=== PATIENT | male | born 1960 ===

== ENCOUNTER 2016-08-09 21:10 | Inpatient (IN) | payer OTHER, MEDICARE ==
[~2016-08-09] VITALS: Ht 170.2 cm; Wt 68.0 kg
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
--- NOTE | 2016-08-09 21:30 | NUR ---
OPEN SORE ON HEAD COVERED WITH BACITRACIN, GAUZE AND SECURED BY AND .
--- NOTE | 2016-08-09 21:40 | NUR ---
PT SKIN CLEANSED AND BARRIER CREAM APPLIED TO OPEN SORE ON R HIP.
--- NOTE | 2016-08-09 22:00 | NUR ---
PT HERBERT D/C'D AND NEW 16G HERBERT PLACED. APPROX 40CCS THICK MILK LIKE WHITE OUTPUT. URINE AND URINE CULTURE SENT TO LAB BY ANTHONY LEO.
--- NOTE | 2016-08-09 22:10 | NUR ---
MARGARITO ESTABLISHED #20 LFA.
--- NOTE | 2016-08-09 22:15 | NUR ---
LABS OBTAINED AND SENT (1SST,1LAV,1BLUE,1GRAY,1PINK)
--- NOTE | 2016-08-09 22:22 | NUR ---
RADIOLOGY AT BEDSIDE FOR PORTABLE CHEST XRAY
[2016-08-09 22:28] LABS: ABSOLUTE BASOPHIL COUNT 0.1 /CUMM (0.0-0.2); ABSOLUTE EOSINOPHIL COUNT 0.5 /CUMM (0.0-0.7); ABSOLUTE GRANULOCYTE CT 9.5 /CUMM (1.4-6.5); ABSOLUTE MONOCYTE COUNT 0.6 /CUMM (0.10-0.60); BASOPHIL % 0.6 % (0.0-2.0); EOSINOPHIL % 4.1 % (0-5); GRANULOCYTE % 75.2 % (42.2-75.2); MEAN CORPUSCULAR HGB 27.5 PG (27.0-31.0); MEAN CORPUSCULAR HGB CONC 32.1 G/DL (33.0-37.0); MEAN CORPUSCULAR VOLUME 85.4 FL (80.0-94.0); MEAN PLATELET VOLUME 7.3 FL (7.4-10.4); PLATELET COUNT 236 /CUMM (130-400); RBC DISTRIBUTION WIDTH 16.8 % (11.5-14.5); RED BLOOD CELL CT 5.27 /CUMM (4.70-6.10); WHITE BLOOD CELL COUNT 12.7 /CUMM (4.8-10.8)
[2016-08-09 22:41] LABS: PT 13.4 SEC (9.4-12.5); PTT 36 SEC (25-37)
--- NOTE | 2016-08-09 22:43 | NUR ---
IN TO [facility]EE[facility]
--- NOTE | 2016-08-09 23:03 | NUR ---
PT MEDICATED WITH IV TYLENOL FOR HEADACHE PER EMAR.
--- NOTE | 2016-08-09 23:04 | RADIOLOGY REPORT ---
EXAMINATION: XR PORTABLE CHEST CLINICAL INFORMATION: Anorexia, weakness COMPARISON: 08/17/2005 chest x-ray TECHNIQUE: Portable frontal view of the chest was obtained. FINDINGS: The cardiomediastinal silhouette is normal. Right subclavian approach single lead cardiac pacer in place with its lead projecting over the right ventricle, unchanged in position. The lungs are clear. The pulmonary vascularity is unremarkable. Partial visualization of surgical wires in the lower neck. IMPRESSION: No acute cardiopulmonary findings.
[2016-08-09] MEDS ORDERED: ASPIRIN81 M4 PO (23:31)
[2016-08-09] MEDS ORDERED: ADVIL100 MG PO (23:32)
[2016-08-09] MEDS ORDERED: PROZAC10 M1 PO (23:32)
[2016-08-09] MEDS ORDERED: VALIUM2 M1 PO (23:32)
--- NOTE | 2016-08-10 00:06 | NUR ---
PT TO CAT SCAN AT THIS TIME.
--- NOTE | 2016-08-10 00:24 | CT SCAN REPORT ---
EXAMINATION: CT HEAD WITHOUT CONTRAST CLINICAL INFORMATION: Quadriplegic. Stage IV posterior occipital sore to the skull. COMPARISON: None. TECHNIQUE: Contiguous axial imaging was performed from the skull base to vertex without intravenous contrast. DLP: 648 mGy-cm. FINDINGS: The skin ulceration overlying the right aspect of the occipital bone is noted. No evidence for a fluid collection. There is stranding present. Gas extends to the bone. No osseous erosion. There is no evidence of acute intracranial hemorrhage or territorial infarction. No abnormal mass effect or midline shift is seen. Bui to white matter differentiation is well preserved. No extra-axial fluid collections are identified. No hydrocephalus. Proportional prominence of the ventricles and sulcal spaces is consistent with mild volume loss. There is no abnormal attenuation within the brain parenchyma. Mild opacification of the right mastoid air cells. Small fluid level in the left sphenoid sinus. IMPRESSION: No acute intracranial pathology. Soft tissue ulceration overlying the high right aspect of the occipital bone. Gas extends to the bone. No osseous erosion.
--- NOTE | 2016-08-10 00:31 | NUR ---
REPEAT LACTIC SENT TO LAB
--- NOTE | 2016-08-10 00:56 | NUR ---
HOUSE STAFF HERE TO AMPARO
--- NOTE | 2016-08-10 01:15 | NUR ---
PT BED ASSIGNMENT [id number]
--- NOTE | 2016-08-10 01:36 | NUR ---
REPORT GIVEN TO LEORA VERGARA
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
[2016-08-10 03:19] VITALS: BP 110/65
--- NOTE | 2016-08-10 03:21 | NUR ---
PT ADMITTED FROM ER VIA STRETCHER. 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 aLERT AND ORIENTED X 3. RA. RCW PACER. VSS PIEDAD. PT IS A QUADRAPELGIC. SKIN IS RED AND BLANCHABLE THOUGHOUT. BUE CONTRACTED. PATCHES OF DARK SKIN ON TRUNK SKIN IS EXCESSIVLEY DRY AND FLAKING OFF. OVERGROWTH OF SKIN TO BILATERAL FEET, NO INDIVIDUAL DIGITS NOTED. +PEDAL PULSE TO RLE ONLY VIA DOPPLER. UNSTAGLEBALE PENDING WOUND CONSULT TO OCCPITAL PORTION OF SKILL, BONE EXPOSED. PER MD ELIER HAMACIN W/ ABD PAD AND KERLIX. FLUIDS RUNNING. WILL CONTINUE TO MONITOR.
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
[2016-08-10 06:30] VITALS: BP 100/54
--- NOTE | 2016-08-10 07:57 | NUR ---
PT GAVE PERMISSION TO SPEAK WITH SISTER KEELEY AT THIS TIME.
[2016-08-10 09:34] LABS: ABSOLUTE BASOPHIL COUNT 0 /CUMM (0.0-0.2); ABSOLUTE EOSINOPHIL COUNT 0.4 /CUMM (0.0-0.7); ABSOLUTE GRANULOCYTE CT 6.8 /CUMM (1.4-6.5); ABSOLUTE LYMPH COUNT 1.8 /CUMM (1.2-3.4); ABSOLUTE MONOCYTE COUNT 0.5 /CUMM (0.10-0.60); BASOPHIL % 0.5 % (0.0-2.0); GRANULOCYTE % 71.9 % (42.2-75.2); MEAN CORPUSCULAR HGB 28.2 PG (27.0-31.0); MEAN CORPUSCULAR VOLUME 85.6 FL (80.0-94.0); MEAN PLATELET VOLUME 7.7 FL (7.4-10.4); PLATELET COUNT 174 /CUMM (130-400); RBC DISTRIBUTION WIDTH 16.5 % (11.5-14.5); RED BLOOD CELL CT 4.21 /CUMM (4.70-6.10); WHITE BLOOD CELL COUNT 9.5 /CUMM (4.8-10.8)
[2016-08-10 11:57] LABS: HEMATOCRIT 36.1 % (42-52)
--- NOTE | 2016-08-10 12:27 | NUR ---
PT eval canceled today. Spoke to nursing who stated pt just transfered to the floor and is still waiting for MD assessment. No POC is currently in place at this time. PT will cont to follow in order to complete eval as appropriate.
[2016-08-10 15:00] VITALS: BP 100/58
[2016-08-10 15:01] VITALS: BP 116/84
[2016-08-10 22:37] VITALS: BP 90/60
[2016-08-10 23:48] VITALS: BP 102/70
[2016-08-11 06:59] VITALS: BP 108/70
[2016-08-11 08:52] LABS: ABSOLUTE BASOPHIL COUNT 0.1 /CUMM (0.0-0.2); ABSOLUTE EOSINOPHIL COUNT 0.5 /CUMM (0.0-0.7); ABSOLUTE GRANULOCYTE CT 6.2 /CUMM (1.4-6.5); ABSOLUTE LYMPH COUNT 1.7 /CUMM (1.2-3.4); ABSOLUTE MONOCYTE COUNT 0.5 /CUMM (0.10-0.60); BASOPHIL % 0.6 % (0.0-2.0); EOSINOPHIL % 5.6 % (0-5); GRANULOCYTE % 68.8 % (42.2-75.2); HEMATOCRIT 35.9 % (42-52); MEAN CORPUSCULAR HGB 27.8 PG (27.0-31.0); MEAN CORPUSCULAR HGB CONC 32.7 G/DL (33.0-37.0); MEAN CORPUSCULAR VOLUME 84.8 FL (80.0-94.0); MEAN PLATELET VOLUME 8.1 FL (7.4-10.4); PLATELET COUNT 154 /CUMM (130-400); RBC DISTRIBUTION WIDTH 16.4 % (11.5-14.5); RED BLOOD CELL CT 4.23 /CUMM (4.70-6.10)
--- NOTE | 2016-08-11 09:15 | NUR ---
Physical Therapy: Consult received and chart reviewed. Pt is a quadriplegic and bedbound at baseline. Acute skilled PT is not indicated at this time. Will not follow. Thank you.
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
[2016-08-11 14:07] VITALS: BP 192/148
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
[2016-08-11 22:51] VITALS: BP 110/80
[2016-08-12 07:41] VITALS: BP 112/80
[2016-08-12 08:11] LABS: ABSOLUTE BASOPHIL COUNT 0.1 /CUMM (0.0-0.2); ABSOLUTE EOSINOPHIL COUNT 0.6 /CUMM (0.0-0.7); ABSOLUTE GRANULOCYTE CT 8.2 /CUMM (1.4-6.5); ABSOLUTE LYMPH COUNT 2.3 /CUMM (1.2-3.4); ABSOLUTE MONOCYTE COUNT 0.9 /CUMM (0.10-0.60); BASOPHIL % 0.4 % (0.0-2.0); EOSINOPHIL % 5.3 % (0-5); GRANULOCYTE % 68.3 % (42.2-75.2); HEMATOCRIT 38.2 % (42-52); MEAN CORPUSCULAR HGB 27.9 PG (27.0-31.0); MEAN CORPUSCULAR HGB CONC 32.9 G/DL (33.0-37.0); MEAN CORPUSCULAR VOLUME 84.8 FL (80.0-94.0); MEAN PLATELET VOLUME 7.8 FL (7.4-10.4); PLATELET COUNT 198 /CUMM (130-400); RBC DISTRIBUTION WIDTH 16.7 % (11.5-14.5); RED BLOOD CELL CT 4.51 /CUMM (4.70-6.10); WHITE BLOOD CELL COUNT 12.1 /CUMM (4.8-10.8)
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
[2016-08-12 14:16] VITALS: BP 115/80
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
[2016-08-12] MEDS ORDERED: FLUOXETINE HCL10 M2 PO (15:48)
--- NOTE | 2016-08-12 15:51 | Patient Discharge Instructions ---
Discharge Instructions General Discharge Information You were seen/treated for: -Failure to thrive -UTI in the setting of chronic Bhat -Pressure ulcers on the buttocks and occipital area negative for osteomyelitis -Necrotic lesions both feet, with possible osteomyelitis You had these procedures: bone biopsy of stage IV Occipital pressure ulcer Special Instructions: 1. Please follow-up with your primary care next week after discharge 2. Please follow-up with wound care after discharge 3. Please follow up with you dependency director after discharge 4. Please follow up with the plastic surgeon after discharge. Diet Continue normal diet: Yes Activity Other activity limits: Patient is quadriplegic Acute Coronary Syndrome Inclusion Criteria At DC or during hospital stay patient has or had the following: ACS DIAGNOSIS No Discharge Core Measures Meds if any: Prescribed or Continued at Discharge Meds if any: NOT Prescribed or Continued at Discharge Congestive Heart Failure Inclusion Criteria At DC or during hospital stay patient has or had the following: CHF DIAGNOSIS No Discharge Core Measures Meds if any: Prescribed or Continued at Discharge Meds if any: NOT Prescribed or Continued at Discharge Cerebrovascular accident Inclusion Criteria At DC or during hospital stay patient has or had the following: CVA/TIA Diagnosis No Discharge Core Measures Meds if any: Prescribed or Continued at Discharge Meds if any: NOT Prescribed or Continued at Discharge Venous thromboembolism Inclusion Criteria VTE Diagnosis No VTE Type NONE VTE Confirmed by (Test) NONE Discharge Core Measures - Per Current guidelines, there needs to be overlap - treatment for the first 5 days of Warfarin therapy. - If discharged on Warfarin prior to 5 days of - overlap therapy, the patient will need to be - assessed for post discharge needs including - *Post discharge parental anticoagulation - *Warfarin and/or parental anticoagulation education - *Follow up date to check INR post discharge At least 5 days overlap therapy as Inpatient Yes Meds if any: Prescribed or Continued at Discharge Note: Overlap Therapy is Warfarin and Anticoagulant Meds if any: NOT Prescribed or Continued at Discharge
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
--- NOTE | 2016-08-12 16:05 | RADIOLOGY REPORT ---
EXAMINATION: XR FOOT, RIGHT XR FOOT, LEFT CLINICAL INFORMATION: Necrotic feet. Evaluate for osteomyelitis. COMPARISON: None TECHNIQUE: Right foot, 3 views Left foot, 3 views FINDINGS: RIGHT FOOT: Soft tissue swelling of the dorsal foot without soft tissue emphysema or radiopaque foreign body. Bones are osteoporotic - especially in the periarticular regions. There is normal alignment at the Chopart and Lisfranc joints. The metatarsophalangeal joints are suboptimally evaluated due to extension at these joints and osseous overlap on the various projections. There is apparent dorsal subluxation at 3rd and 4th MTP joints and dorsal dislocation at the 5th MTP joint. The metatarsal heads are suboptimally evaluated. The cortical bone of the 5th metatarsal head is suboptimally defined. If patient has a soft tissue ulcer plantar to the 5th MTP joint, then suspicion for osteomyelitis involving the 5th metatarsal head would be further elevated. The lateral radiograph shows a soft tissue ulcer at the plantar aspect of the foot (plantar to the MTP joints). Also, there is soft tissue loss around the tip of the distal phalanx of the great toe . Questionable finding of mild bone resorption at the medial tip of the of the distal phalanx. LEFT FOOT: Soft tissue swelling at the dorsal aspect of the foot without soft tissue emphysema. Bones appear diffusely osteoporotic. The ankle and subtalar joints are suboptimally evaluated. There appears to be diffuse joint space narrowing within the hindfoot and midfoot. Bones have normal alignment at the Chopart and Lisfranc joints. Multiple toes are extended at their MTP joints. The articular surfaces at these joints are suboptimally evaluated due to osseous overlap on multiple projections and due to the severity of the osteoporosis. Possible chronic osseous resorption of the 4th metatarsal head. Opacity from bandage/gauze overlies the forefoot and partially interferes with evaluation of the phalanges. There is soft tissue ulceration at the tip of the great toe, and the lateral radiograph shows presence of bone resorption at the plantar surface of the distal phalangeal tuft -- this could be due to chronic ischemia and/or osteomyelitis. The integrity of the distal phalanx of the second toe is difficult to define; there is possible bone resorption at its tuft. IMPRESSION: 1. Bones are diffusely osteoporotic within both feet. 2. Due to the degree of osteoporosis, presence of forefoot bandages, and osseous overlap on various projections, it is difficult to radiographically evaluate the integrity of the metatarsal heads and phalanges. 3. Soft tissue ulcers are seen in the plantar aspect of each forefoot. Mild bone resorption at the medial aspect of the tuft of the distal phalanx of right great toe is suspected. Also, cortical bone at the head of the right 5th metatarsal is suboptimally defined. Unable to exclude osteomyelitis in these locations. 4. There is likely chronic ischemic bone loss and/or osteomyelitis affecting the tip of the distal phalanx of the left great toe. Distal phalanges of many toes in the left foot are suboptimally evaluated. MR imaging, or CT imaging, may be helpful for further evaluation.
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
--- NOTE | 2016-08-12 17:42 | PN- Podiatry ---
Subjective Subjective: Patient seen at bedside with no new pedal complaints. Reviewed x-ray findings at bedside with patient. Objective Vital Signs and I&Os Vital Signs Date Time Temp Pulse Resp B/P B/P Pulse O2 O2 Flow FiO2 Mean Ox Delivery Rate 08/12 1444 Room Air 08/12 1443 Room Air 08/12 1440 Room Air 08/12 1416 98.8 104 20 115/80 97 08/12 1411 Room Air 08/12 1340 Room Air 08/12 0741 97.9 97 20 112/80 99 08/11 2251 98.1 99 20 110/80 100 Intake & Output 08/12 1600 08/12 0800 08/12 0000 08/11 1600 08/11 0800 08/11 0000 Intake Total 120 240 600 450 300 Output Total 450 3400 2525 2100 300 251 Balance -450 -3280 -2285 -1500 150 49 Intake, Oral 120 240 600 450 300 Number 0 Bowel Movements Output, Stool 1 Output, Urine 450 3400 2525 2100 300 250 Patient 150 lb Weight Physical Exam: Dressings bilateral feet clean dry and intact. No cellulitis associated. Assessment/Plan Assessment/Plan Likely osteomyelitis great toe left foot possible osteomyelitis great toe right foot with questionable findings involving the lesser digits. Discussed great toe amputation with patient and he is amenable to this course. Will coordinate care with plastics.
--- NOTE | 2016-08-12 19:20 | PN- Plastic Surgery ---
Surgical Brief Attending Note Brief Attending Note: Consult requested to see patient for scalp wound. Patient already seen by plastic surgeon, Dr. Agudelo, this afternoon. Please feel free to call with any additional questions or requests. Patient, nursing, and medical team informed. Thank you. Dr. Rincon [phone]
[2016-08-13] VITALS (10 sets, daily range): BP systolic 112–180; BP diastolic 70–120
--- NOTE | 2016-08-13 06:55 | NUR ---
PT BP 180/118 HR 90. PAGED ORENGE MARIO MCGILL, PER MD GIVE VALIUM EARLY. PT C/O MUSCLE SPASMS AND ANXIETY, DENIES CHEST PAIN, SOB, NAUSEA, DIZZINESS. PER PT "IF YOU WANT THE BP TO GO DOWN I NEED TO TAKE VALIUM". PER MD ORDERS VALIUM GIVEN. WILL PASS ON TO ONCOMING RN TO RECHECK BP.
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
--- NOTE | 2016-08-13 08:26 | PN- Wound Care ---
Subjective Subjective: Plastic surgery evaluation noted decision has been made for conservative therapy Objective Vital Signs and I&Os Vital Signs Result Date Time B/P 170/110 08/13 0515 Pulse Ox 99 08/13 599 O2 Delivery Room Air 08/13 599 Temp 98.4 08/13 599 Pulse 90 08/13 599 Resp 16 08/13 599 Intake & Output 08/13 0000 / 1600 08/12 0800 Intake Total 120 240 120 Output Total 6558 308 6741 Balance -1280 -210 -3280 Intake, Oral 120 240 120 Number 1 Bowel Movements Output, Urine 3392 208 6390 Wound is unchanged with continued exposed bone Impression/Plan Impression/Plan Impression/Plan: 56-year-old quadriplegic has a stage IV pressure ulcer to the occipital area of his skull. The wound extends to bone which is exposed. Concern is raised over the possibility of osteomyelitis. Recommendation is made for plastic surgery evaluation for debridement and possible bone biopsy once antibiotics have been discontinued. For now the area should be offloaded to the extent possible and wound care can be Aquacel Ag with gauze over dressing on a daily basis with wound cleansing. Decision has been made not to pursue debridement and biopsy therefore can continue local wound care with Aquacel Ag and offload the area with a a doughnut. These may be available from the OR as anesthesia often uses disease to protect pressure damage from the scalp as well
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
--- NOTE | 2016-08-13 12:39 | PN- Infect Dx ---
Subjective Subjective: Afebrile without complaints Objective Last 24 Hrs of Vital Signs/I&O Vital Signs Date Time Temp Pulse Resp B/P B/P Pulse O2 O2 Flow FiO2 Mean Ox Delivery Rate 08/13 1105 Room Air 08/13 0844 112/70 08/13 0615 170/110 08/13 0600 98.4 90 16 180/120 99 Room Air 08/13 0241 140/92 08/13 0154 97.9 92 16 153/115 98 Room Air 08/12 1444 Room Air 08/12 1443 Room Air 08/12 1440 Room Air 08/12 1416 98.8 104 20 115/80 97 08/12 1411 Room Air 08/12 1340 Room Air Intake & Output 08/13 1600 08/13 0800 08/13 0000 Intake Total 200 120 Output Total 600 1400 Balance -400 -1280 Intake, Oral 200 120 Number 0 1 Bowel Movements Output, Urine 600 1400 Physical Exam Other Physical Findings: He appears comfortable in no acute distress HEENT dressing intact Lungs are clear Heart regular rhythm with no murmur Extremities dressings intact over both feet Results Last 24 Hours of Lab Results: No labs from today Last 24 Hours of Nelson Results: Blood cultures August 09 negative Urine culture August 12 negative Recent Imaging Studies: X-rays of both feet reveal diffuse osteoporosis, with mild bone resorption at the medial aspect of the tuft of the distal pharynx of the right great toe with cortical bone at the head of the right fifth metatarsal; chronic ischemic bone loss and/or osteomyelitis affecting the tip of the distal phalanx of the left great toe, with suboptimal evaluation of the distal phalanges of many of the toes of the left foot Assessment/Plan Impression: Stable off antibiotics with temperatures remaining normal. He is scheduled for a bone biopsy and wound closure of the occipital wound in the a.m., at which time he will also undergo bone biopsy/debridement of the affected toes by Podiatry. Suggestion: 1. Await occipital bone biopsy in the a.m. 2. Await debridement of the toes, scheduled for the a.m. as well 3. Continue to follow off antibiotics pending above
--- NOTE | 2016-08-13 18:08 | PN- Podiatry ---
Subjective Subjective: Patient seen at bedside for discussion regarding amputation of left and right great toes tomorrow. No new pedal complaints. Objective Vital Signs and I&Os Vital Signs Date Time Temp Pulse Resp B/P B/P Pulse O2 O2 Flow FiO2 Mean Ox Delivery Rate 08/13 1659 150/90 08/13 1543 172/90 08/13 1405 98.2 80 20 140/80 93 08/13 1105 Room Air 08/13 0844 112/70 08/13 0615 170/110 08/13 0600 98.4 90 16 180/120 99 Room Air 08/13 0241 140/92 08/13 0154 97.9 92 16 153/115 98 Room Air Intake & Output 08/13 1600 08/13 0800 08/13 0000 08/12 1600 08/12 0800 08/12 0000 Intake Total 500 200 120 240 120 240 Output Total 4724 976 0204 450 3400 2525 Balance -600 -400 -1280 -210 -3280 -2285 Intake, Oral 500 200 120 240 120 240 Number 0 1 Bowel Movements Output, Urine 7789 875 9639 450 3400 2525 Physical Exam: Dressing to both feet clean dry and intact. Assessment/Plan Assessment/Plan Left great toe osteomyelitis, with possible right great toe and fifth met head osteomyelitis. We will coordinate care with plastics following the debridement tomorrow. Consent obtained at bedside. Attending MD Review Statement Attending Statement Attending MD Statement: examined this patient
[2016-08-14 05:42] VITALS: BP 120/80
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
[2016-08-14 07:48] LABS: ABSOLUTE BASOPHIL COUNT 0 /CUMM (0.0-0.2); ABSOLUTE EOSINOPHIL COUNT 0.5 /CUMM (0.0-0.7); ABSOLUTE GRANULOCYTE CT 6.2 /CUMM (1.4-6.5); ABSOLUTE LYMPH COUNT 2.2 /CUMM (1.2-3.4); ABSOLUTE MONOCYTE COUNT 0.9 /CUMM (0.10-0.60); BASOPHIL % 0.5 % (0.0-2.0); EOSINOPHIL % 4.7 % (0-5); GRANULOCYTE % 63.1 % (42.2-75.2); HEMATOCRIT 35.5 % (42-52); MEAN CORPUSCULAR HGB 28.3 PG (27.0-31.0); MEAN CORPUSCULAR HGB CONC 32.9 G/DL (33.0-37.0); MEAN CORPUSCULAR VOLUME 85.8 FL (80.0-94.0); MEAN PLATELET VOLUME 8.2 FL (7.4-10.4); PLATELET COUNT 182 /CUMM (130-400); RBC DISTRIBUTION WIDTH 16.7 % (11.5-14.5); RED BLOOD CELL CT 4.13 /CUMM (4.70-6.10); WHITE BLOOD CELL COUNT 9.8 /CUMM (4.8-10.8)
--- NOTE | 2016-08-14 08:40 | PN- Wound Care ---
Subjective Subjective: For surgical debridement and bone biopsy of cranial ulcer today. Exam of his sacral area shows there to be a approximately 3.5 x 2.5 stage II pressure ulcer which was present on admission it has a clean red base there is no undermining sinus tracking or exposed bone Objective Vital Signs and I&Os Vital Signs Result Date Time Pulse Ox 99 08/14 541 B/P 120/80 08/14 541 O2 Delivery Room Air 08/14 541 Temp 98.3 08/14 541 Pulse 100 08/14 541 Resp 20 08/14 541 Intake & Output 08/14 0000 08/13 1600 08/13 0800 Intake Total 450 500 200 Output Total 751 1100 600 Balance -301 -600 -400 Intake, Oral 450 500 200 Number 1 0 Bowel Movements Output, Stool 1 Output, Urine 750 1100 600 Impression/Plan Impression/Plan Impression/Plan: 56-year-old quadriplegic has a stage IV pressure ulcer to the occipital area of his skull. The wound extends to bone which is exposed. Concern is raised over the possibility of osteomyelitis. Recommendation is made for plastic surgery evaluation for debridement and possible bone biopsy once antibiotics have been discontinued. For now the area should be offloaded to the extent possible and wound care can be Aquacel Ag with gauze over dressing on a daily basis with wound cleansing. Await surgical biopsy, wound care for stage II sacral ulcer can be either barrier cream or Aquacel Ag with appropriate offloading. Note review of nursing notes shows this was present on admission
--- NOTE | 2016-08-14 12:52 | NUR ---
PT GOING DOWN TO THE OR AT THIS TIME WITH DISTRIBUTION. VSS.
--- NOTE | 2016-08-14 15:17 | Operative Report ---
Operative/Inv Procedure Report Surgery Date: 08/14/16 Name of Procedure: Debridement and biopsy posterior skull Complex closure scalp wound secondary to quadriplegia and prolonged pressure,8 cm Pre-Operative Diagnosis: Pressure decubiti prehospital posterior scalp Post-Operative Diagnosis: Same Estimated Blood Loss: scant Surgeon/Inventory Coordinator: wil Anesthesia: moderate sedation Operative/Procedure Note Note: The patient was counseled regards to the procedure the alternatives risks and expected outcomes as relates to his surgical intervention to help treat a posterior scalp wound. The patient has full thickness injury to the posterior scalp due to a bout of depression and prolonged pressure on the area. The patient is quadriplegic. There is absent periosteum. We talked about primary closure with the additional risk of postoperative infection that would need to have the wound opened. The procedure were also discussed. The patient accepted. Was brought to the operating room position. Intravenous sedation was given the scalp was prepped and draped in usual sterile fashion. Full-thickness excision around the entirety of the wound was performed. Stents of undermining was then carried out in all directions to provide tension-free closure which was performed for approximately 8 cm. The to debridement of the posterior skull was extremely firm and small pieces of the ostectomy was sent for micron path analysis. Was made hemostatic with electrocautery. Dictation
[2016-08-14 16:00] VITALS: BP 100/70
--- NOTE | 2016-08-14 17:10 | Operative Report ---
Operative/Inv Procedure Report Surgery Date: 08/14/16 Name of Procedure: 1 open incision and drainage deep to the D fashion with exposure of the extensor and flexor tendon and tendon sheath multiple sites left foot 2 closure of chronic nonhealing ulcer with local random advancement flap 3 intraoperative administration of ankle block anesthesia 4 excisional debridement Pre-Operative Diagnosis: 1 open necrotic wound left foot 2 osteomyelitis left foot Post-Operative Diagnosis: Same Estimated Blood Loss: less than 50ml Surgeon/Airplane Cabin Attendant: JOB SNIDER DPM Anesthesia: moderate sedation, block Operative/Procedure Note Note: After obtaining informed consent patient was brought to the operating room and placed on the operating table in the supine position. He was then repositioned into a lateral decubitus position, so that the plastic service could debridement a scalp wound and harvest the bone biopsy. After administration of IV sedation, 10 mL of 0.5% Marcaine plain was infiltrated about the patient's left ankle. Left foot and ankle within scrubbed prepped and draped in usual aseptic manner. Attention directed left foot where a large full-thickness chronic was identified. A 15 blade was utilized sharply revised skin margins. The dissection was then carried down deep to the D fashion with exposure of the flexor tendon and tendon sheath multiple sites left foot. All necrotic nonviable infected tissue sharply evacuated from the wound bed. Area down to the capture structures at the level metatarsal phalangeal joint which were incised. The distal first ray was then disarticulated and passed from the operative field. Specimen was sent for pathologic inspection. Nipple was then irrigated with 3 L normal sterile saline fissure 50,000 units of bacitracin. Following this, the foot was redraped and the surgeon's top gloves were changed clean gloves. Any bleeding vessels identified were cauterized or ligated as encountered. A dorsal and plantar flap was then developed with undermining, mobilization and advancement adjacent tissues. The dorsal flap was secured centrally with 3-0 Vicryl and the plantar flap was similarly secured with 3-0 Vicryl. Subtenons tissues report with 4-0 Vicryl and the skin edges reapproximated with 3-0 nylon. The incision was dressed with Xeroform 4 x 4's Kerlix and an Delfino wrap. The patient is noted tolerate both procedure and anesthesia well and the patient was transported from the operating room to recovery by sent stable best assess intact both the dorsal and plantar flaps.
--- NOTE | 2016-08-14 17:26 | NUR ---
PT UP TO FLOOR AT 1600. PT A/O X3. PT QUADRAPALEGIC. LIMITED CONTROL OF BUE. PT S/P BIOPSY TO OCCIPTAL PART OF HEAD. SUTURES IN PLACE W ABD. NO ACTIVE BLEEDING PRESENT. PT ON CRADLE PILLOW. PT S/P L FOOT GREAT TOE AMP W LARGE BULKY DRAINAGE COVERED W ANTIONE WRAP. PT ON CLINITRON MATTRESS. SPECIAL CALL LIGHT BAEZA BUTTON WITHIN REACHON CHEST. WILL FOLLOW
[2016-08-14 22:37] VITALS: BP 110/78
[2016-08-15 06:30] VITALS: BP 116/72
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
[2016-08-15 08:07] LABS: ABSOLUTE BASOPHIL COUNT 0 /CUMM (0.0-0.2); ABSOLUTE EOSINOPHIL COUNT 0.5 /CUMM (0.0-0.7); ABSOLUTE GRANULOCYTE CT 5.1 /CUMM (1.4-6.5); ABSOLUTE LYMPH COUNT 2.1 /CUMM (1.2-3.4); ABSOLUTE MONOCYTE COUNT 0.5 /CUMM (0.10-0.60); BASOPHIL % 0.6 % (0.0-2.0); EOSINOPHIL % 5.5 % (0-5); GRANULOCYTE % 62.1 % (42.2-75.2); HEMATOCRIT 32.7 % (42-52); MEAN CORPUSCULAR HGB 28.1 PG (27.0-31.0); MEAN CORPUSCULAR HGB CONC 33.1 G/DL (33.0-37.0); PLATELET COUNT 176 /CUMM (130-400); RBC DISTRIBUTION WIDTH 16.4 % (11.5-14.5); RED BLOOD CELL CT 3.85 /CUMM (4.70-6.10); WHITE BLOOD CELL COUNT 8.3 /CUMM (4.8-10.8)
--- NOTE | 2016-08-15 10:49 | PN- Infect Dx ---
Subjective Subjective: Afebrile. He notes some discomfort in the occipital area, Objective Last 24 Hrs of Vital Signs/I&O Vital Signs Date Time Temp Pulse Resp B/P B/P Pulse O2 O2 Flow FiO2 Mean Ox Delivery Rate 08/15 1027 Room Air 08/15 0630 98.3 84 18 116/72 98 Room Air 08/14 2237 98.3 107 20 110/78 99 Room Air 08/14 1600 97.3 73 16 100/70 99 Nasal 2.0L Cannula Intake & Output 08/15 1600 08/15 0800 08/15 0000 Intake Total 1080 2600 Output Total 750 250 Balance 330 2350 Intake, IV 600 600 Intake, Oral 480 2000 Output, Urine 750 250 Physical Exam Other Physical Findings: He appears comfortable in no acute distress HEENT occipital wound sutured, with no surrounding erythema Extremities left foot dressing intact Results Last 24 Hours of Lab Results: Laboratory Tests 08/15 0725 Chemistry Sodium (137 - 145 mmol/L) 138 Potassium (3.5 - 5.1 mmol/L) 4.2 Chloride (98 - 107 mmol/L) 104 Carbon Dioxide (22 - 30 mmol/L) 27 Anion Gap (5 - 16) 7 BUN (9 - 20 mg/dL) 26 H Creatinine (0.7 - 1.2 mg/dL) 0.4 L Estimated GFR (>60 ml/min) > 60 BUN/Creatinine Ratio (7 - 25 %) 65.0 H Hematology CBC w Diff NO MAN DIFF REQ WBC (4.8 - 10.8 /CUMM) 8.3 RBC (4.70 - 6.10 /CUMM) 3.85 L Hgb (14.0 - 18.0 G/DL) 10.8 L Hct (42 - 52 %) 32.7 L MCV (80.0 - 94.0 FL) 85.0 MCH (27.0 - 31.0 PG) 28.1 RDW (11.5 - 14.5 %) 16.4 H Plt Count (130 - 400 /CUMM) 176 MPV (7.4 - 10.4 FL) 8.0 Gran % (42.2 - 75.2 %) 62.1 Lymphocytes % (20.5 - 51.1 %) 25.8 Monocytes % (1.7 - 9.3 %) 6.0 Eosinophils % (0 - 5 %) 5.5 H Basophils % (0.0 - 2.0 %) 0.6 Absolute Granulocytes (1.4 - 6.5 /CUMM) 5.1 Absolute Lymphocytes (1.2 - 3.4 /CUMM) 2.1 Absolute Monocytes (0.10 - 0.60 /CUMM) 0.5 Absolute Eosinophils (0.0 - 0.7 /CUMM) 0.5 Absolute Basophils (0.0 - 0.2 /CUMM) 0 PUBS MCHC (33.0 - 37.0 G/DL) 33.1 Last 24 Hours of Nelson Results: Urine culture August 12 negative Assessment/Plan Impression: Stable status post bone biopsy of the posterior skull for possible osteomyelitis , with closure of the scalp wound, and I&D of the left foot, with amputation of the great toe, yesterday. Unfortunately no specimen of the occipital bone was sent to microbiology; therefore if the pathology suggests osteomyelitis he will require a repeat biopsy for culture. The left great toe was also not submitted for culture, but Podiatry does not feel there is any concern for residual osteomyelitis; therefore he should not require antibiotics for this. He remains afebrile with white blood cell count normal off antibiotics, and he will need to continue to be followed off antibiotics pending further evaluation. Suggestion: 1. Follow-up occipital bone biopsy 2. Continue to follow off antibiotics
[2016-08-15 15:36] VITALS: BP 110/70
[2016-08-15 22:37] VITALS: BP 113/68
--- NOTE | 2016-08-16 00:30 | NUR ---
ALERT AND ORIENTED X 3. VITAL SIGNS STABLE. DENIES CHEST PAIN. + PULSES DSG TO R AND LEFT FOOT ARE C/D/I. ABD PAD UNDER HEAD WITH SCANT DRAINAGE NOTED MEDICATION GIVEN FOR DISCOMFORT. PATIENT TURNED AND REPOSITIONED. HERBERT CARE GIVEN. BED BOUND AT BASELINE. WILL CONTINUE TO MONITOR
[2016-08-16 07:59] VITALS: BP 136/80
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
[2016-08-16 08:37] LABS: ABSOLUTE BASOPHIL COUNT 0 /CUMM (0.0-0.2); ABSOLUTE EOSINOPHIL COUNT 0.5 /CUMM (0.0-0.7); ABSOLUTE GRANULOCYTE CT 5.6 /CUMM (1.4-6.5); ABSOLUTE LYMPH COUNT 1.7 /CUMM (1.2-3.4); ABSOLUTE MONOCYTE COUNT 0.5 /CUMM (0.10-0.60); BASOPHIL % 0.6 % (0.0-2.0); EOSINOPHIL % 5.8 % (0-5); GRANULOCYTE % 66.8 % (42.2-75.2); HEMATOCRIT 32.5 % (42-52); MEAN CORPUSCULAR HGB 28.4 PG (27.0-31.0); MEAN CORPUSCULAR HGB CONC 33.2 G/DL (33.0-37.0); MEAN CORPUSCULAR VOLUME 85.4 FL (80.0-94.0); MEAN PLATELET VOLUME 7.8 FL (7.4-10.4); PLATELET COUNT 184 /CUMM (130-400); RBC DISTRIBUTION WIDTH 16.2 % (11.5-14.5); RED BLOOD CELL CT 3.81 /CUMM (4.70-6.10); WHITE BLOOD CELL COUNT 8.4 /CUMM (4.8-10.8)
[2016-08-16 14:33] VITALS: BP 120/72
[2016-08-16 21:10] VITALS: BP 180/120
[2016-08-16 21:55] VITALS: BP 140/100
[2016-08-17 07:35] VITALS: BP 112/70
--- NOTE | 2016-08-17 09:10 | NUR ---
PHYSICAL THERAPY- REPEAT CONSULT PT WAS ALREADY SEEN ON 08/11/16 AND ACCORDING TO EMR AND NSG, PT IS A QUADRIPLEGIC AND IS BEDBOUND RENDERING HIM NOT APPROPRIATE FOR ACUTE SKILLED P.T. SERVICES. WILL NOT FOLLOW. THANK YOU JARRED SUAZOT
[2016-08-17 14:08] VITALS: BP 142/99
--- NOTE | 2016-08-17 15:13 | PN- Att Addend ---
Attending Addendum Attending Brief Note S: The patient did note some occipital discomfort at biopsy site, otherwise stable. Asking if the brand of catheter he is using is available for him to purchase for use at home as it is working well. O: VS: Vital Signs Date Time Temp Pulse Resp B/P B/P Pulse O2 O2 Flow FiO2 Mean Ox Delivery Rate 08/17 2132 98.1 80 18 132/90 99 Room Air 08/17 1600 Room Air 08/17 1408 99.2 99 20 142/99 98 08/17 0735 97.9 95 20 112/70 99 Room Air Intake & Output 08/18 0800 08/18 0000 08/17 1600 Intake Total 800 480 Output Total 1500 350 Balance -700 130 Intake, Oral 800 480 Output, Urine 1500 350 Current Medications Sig/Ellen Start time Last Medication Dose Route Stop Time Status Admin Acetaminophen 650 MG Q8P PRN 08/10 0145 AC 08/14 PO 2148 Acetaminophen/ 1 TAB Q8P PRN 08/10 0145 AC 08/15 Hydrocodone Bitart PO 2150 Aspirin 81 MG DAILY 08/10 1000 AC 08/17 PO 0850 Bacitracin 1 JARRET BID 08/14 1530 AC 08/17 TOP 2145 Bisacodyl 10 MG .STK-MED ONE 08/17 1856 DC [place] 08/17 1857 Bisacodyl 10 MG DAILY PRN 08/15 2114 AC 08/17 WI 1855 Calcium Carbonate 500 MG 1800 08/13 1800 AC 08/17 PO 1739 Diazepam 2 MG DAILY 08/10 1000 AC 08/17 PO 0850 Docusate Sodium 100 MG DAILY NEEDED PRN 08/15 2114 AC PO Enoxaparin Sodium 40 MG DAILY 08/10 1000 AC 08/17 SC 0851 Fluoxetine HCl 30 MG QAM 08/12 1000 AC 08/17 PO 0850 Melatonin 3 MG AT BEDTIME 08/16 0030 AC 08/17 PO 2144 Morphine Sulfate 2 MG Q8P PRN 08/10 0145 AC IV Physical Exam: HEENT: tian- moist mucosa Chest: clear Cor: RRR, nl S1, S2 w/o murm Abd: BS+, soft, NT Ext: no edema Neuro: w/o change Labs/Tests: Laboratory Tests 08/16/16 0720: CBC w Diff NO MAN DIFF REQ, RBC 3.81 L, MCV 85.4, MCH 28.4, RDW 16.2 H, MPV 7.8, Gran % 66.8, Lymphocytes % 20.5, Monocytes % 6.3, Eosinophils % 5.8 H, Basophils % 0.6, Absolute Granulocytes 5.6, Absolute Lymphocytes 1.7, Absolute Monocytes 0.5, Absolute Eosinophils 0.5, Absolute Basophils 0, PUBS MCHC 33.2 Impression/Plan: #UTI- off antibiotics. Remains afebrile. Plan: As above, patient requesting possible purchase of same type of catheter for home use as he feels it is better. #Pressure Ulcers- s/p biopsy of occipital region. As noted by ID, this was not sent to microbiology for culture. Plan: Await path/biopsy report. May need to repeat. #Left 1st Toe Infection- s/p amputation. ? osteomyelitis. Plan: Await culture results. Dr. Villarreal and Dr. Almeida to follow-up.
[2016-08-17 21:33] VITALS: BP 132/90
[2016-08-18 06:48] VITALS: BP 134/70
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
--- NOTE | 2016-08-18 12:56 | PN- Infect Dx ---
Subjective Subjective: Afebrile without complaints Objective Last 24 Hrs of Vital Signs/I&O Vital Signs Date Time Temp Pulse Resp B/P B/P Pulse O2 O2 Flow FiO2 Mean Ox Delivery Rate 08/18 0648 97.8 91 18 134/70 100 Room Air 08/17 2133 98.1 80 18 132/90 99 Room Air 08/17 1600 Room Air 08/17 1408 99.2 99 20 142/99 98 Intake & Output 08/18 1600 08/18 0800 08/18 0000 Intake Total 300 800 Output Total 9980 959 6470 Balance -1000 -550 -700 Intake, Oral 300 800 Number 0 Bowel Movements Output, Urine 6400 010 0601 Physical Exam Other Physical Findings: He appears comfortable in no acute distress HEENT occipital wound well-healed Results Last 24 Hours of Lab Results: Laboratory Tests 08/16 0720 Hematology CBC w Diff NO MAN DIFF REQ WBC (4.8 - 10.8 /CUMM) 8.4 RBC (4.70 - 6.10 /CUMM) 3.81 L Hgb (14.0 - 18.0 G/DL) 10.8 L Hct (42 - 52 %) 32.5 L MCV (80.0 - 94.0 FL) 85.4 MCH (27.0 - 31.0 PG) 28.4 RDW (11.5 - 14.5 %) 16.2 H Plt Count (130 - 400 /CUMM) 184 MPV (7.4 - 10.4 FL) 7.8 Gran % (42.2 - 75.2 %) 66.8 Lymphocytes % (20.5 - 51.1 %) 20.5 Monocytes % (1.7 - 9.3 %) 6.3 Eosinophils % (0 - 5 %) 5.8 H Basophils % (0.0 - 2.0 %) 0.6 Absolute Granulocytes (1.4 - 6.5 /CUMM) 5.6 Absolute Lymphocytes (1.2 - 3.4 /CUMM) 1.7 Absolute Monocytes (0.10 - 0.60 /CUMM) 0.5 Absolute Eosinophils (0.0 - 0.7 /CUMM) 0.5 Absolute Basophils (0.0 - 0.2 /CUMM) 0 PUBS MCHC (33.0 - 37.0 G/DL) 33.2 Pathology of the occipital bone pending Last 24 Hours of Nelson Results: No recent cultures Assessment/Plan Impression: Stable status post bone biopsy of the posterior skull for possible osteomyelitis , with closure of the scalp wound, and I&D of the left foot, with amputation of the great toe, 3 days ago. Unfortunately no specimen of the occipital bone was sent to microbiology; therefore if the pathology suggests osteomyelitis he will require a repeat biopsy for culture. The left great toe was also not submitted for culture, but Podiatry does not feel there is any concern for residual osteomyelitis; therefore he should not require antibiotics for this. He remains afebrile with white blood cell count normal off antibiotics, and he will need to continue to be followed off antibiotics pending further evaluation. Suggestion: 1. Await results of the occipital bone biopsy 2. Continue to follow off antibiotics
[2016-08-18 14:38] VITALS: BP 120/70
--- NOTE | 2016-08-18 15:23 | PN- Psychiatry ---
Assessment/Plan Impression: Identifying Info: 56-year-old quadriplegic male presents by ambulance to [facility] on 08/09/2016 with multiple pressure ulcers and failure to thrive post not leaving his bed for 16 month peroid and was admitted to medicine. 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 They are long-term partners however it is not clear if they are in fact legally . SUBJECTIVE Today the patient reports no changes. He has no complaints at this time. He states that he'll be going to rehabilitation and would consider going to [place]. He is eager to get the results of his bone biopsy. Brief ROS Gait: Impaired Sleep: Adequate Appetite: Adequate OBJECTIVE Mental Status Exam Presentation/Appearance: Cooperative with evaluation. Hospital garb, lying in bed. Orientation: x4 Sensorium: Awake and alert Eye contact: Appropriate Affect: Somewhat blunted but congruent with stated mood Mood: Euthymic Depression: Endorses r/t his Anxiety: Endorses Thought Content: - Denies SI/HI, AH/VH, PI. States and also believes they will not kill themselves. - Denies Hopeless/Helpless Thoughts Thought Process: Linear Associations: Appropriate Speech: WNL Judgment: Fair Insight: Fair Cognition: Memory: Deficits noted for peroid of being bed ridden Attention/Concentration: grossly intact Fund of Knowledge: Adequate Abstractions: Did not assess MMSE: Did not assess ASSESSMENT 56-year-old quadriplegic male presents with multiple pressure ulcers and failure to thrive post not leaving his bed for 16 months. When he was found he was covered in his own urine and stool. Today he presents without complaint. He is hopeful for his own recovery and agreeable with treatment plans at this time. Differential diagnosis Major depressive disorder with anxious features Rule out adjustment disorder Rule out other unspecified trauma related disorder Rule out hypoactive delirium, resolved Suggestion: 1. Continue psychotropic medication as currently ordered. Consider future increase in Prozac dose. 2. Recommend patient be followed by psychiatry at rehabilitation post discharge. Thank you for including psychiatry in this case we'll continue to follow. Subjective Subjective: as above Objective Last 24 Hrs of Vital Signs/I&O Current Medications Sig/Ellen Start time Last Medication Dose Route Stop Time Status Admin Acetaminophen 650 MG Q8P PRN 08/10 0145 AC 08/14 PO 2148 Acetaminophen/ 1 TAB Q8P PRN 08/10 0145 AC 08/15 Hydrocodone Bitart PO 2150 Aspirin 81 MG DAILY 08/10 1000 AC 08/18 PO 0804 Bacitracin 1 JARRET BID 08/14 1530 AC 08/18 TOP 0803 Bisacodyl 10 MG .STK-MED ONE 08/17 1856 DC ND 08/17 1857 Bisacodyl 10 MG DAILY PRN 08/15 211 AC 08/17 ND 1855 Calcium Carbonate 500 MG 1800 08/13 1800 AC 08/17 PO 1739 Diazepam 2 MG DAILY 08/10 1000 AC 08/18 PO 0806 Docusate Sodium 100 MG DAILY NEEDED PRN 08/15 2114 AC PO Enoxaparin Sodium 40 MG DAILY 08/10 1000 AC 08/18 SC 0803 Fluoxetine HCl 30 MG QAM 08/12 1000 AC 08/18 PO 0803 Melatonin 3 MG AT BEDTIME 08/16 0030 AC 08/17 PO 2144 Morphine Sulfate 2 MG Q8P PRN 08/10 0145 AC IV Laboratory Tests 08/16/16 0720: CBC w Diff NO MAN DIFF REQ, RBC 3.81 L, MCV 85.4, MCH 28.4, RDW 16.2 H, MPV 7.8, Gran % 66.8, Lymphocytes % 20.5, Monocytes % 6.3, Eosinophils % 5.8 H, Basophils % 0.6, Absolute Granulocytes 5.6, Absolute Lymphocytes 1.7, Absolute Monocytes 0.5, Absolute Eosinophils 0.5, Absolute Basophils 0, PUBS MCHC 33.2 Vital Signs Date Time Temp Pulse Resp B/P B/P Pulse O2 O2 Flow FiO2 Mean Ox Delivery Rate 08/18 1509 Room Air 08/18 1438 98.4 88 18 120/70 98 08/18 0648 97.8 91 18 134/70 100 Room Air 08/17 2133 98.1 80 18 132/90 99 Room Air 08/17 1600 Room Air Intake & Output 08/18 1600 08/18 0800 08/18 0000 Intake Total 300 800 Output Total 2443 306 9552 Balance -1900 -550 -700 Intake, Oral 300 800 Number 0 Bowel Movements Output, Urine 9959 239 0423
[2016-08-18 22:35] VITALS: BP 118/60
[2016-08-19 06:34] VITALS: BP 124/58
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
[2016-08-19 14:26] VITALS: BP 140/70
--- NOTE | 2016-08-19 14:28 | PN- Infect Dx ---
Subjective Subjective: Afebrile. He notes some discomfort in his left foot as well as in his neck and back. Objective Last 24 Hrs of Vital Signs/I&O Vital Signs Date Time Temp Pulse Resp B/P B/P Pulse O2 O2 Flow FiO2 Mean Ox Delivery Rate 08/19 0634 98.6 62 20 124/58 94 Room Air 08/18 2235 98.4 104 19 118/60 98 Room Air 08/18 1509 Room Air 08/18 1438 98.4 88 18 120/70 98 Intake & Output 08/19 1600 08/19 0800 08/19 0000 Intake Total 120 840 Output Total 650 1150 Balance -530 -310 Intake, Oral 120 840 Number 0 Bowel Movements Output, Urine 650 1150 Physical Exam Other Physical Findings: He appears mildly uncomfortable but in no acute distress Extremities both feet with dressings intact Results Last 24 Hours of Lab Results: Laboratory Tests 08/19 1320 Hematology CBC w Diff Pending WBC Pending RBC Pending Hgb Pending Hct Pending MCV Pending MCH Pending RDW Pending Plt Count Pending MPV Pending PUBS MCHC Pending Occipital bone pathology negative for osteomyelitis Last 24 Hours of Nelson Results: No recent cultures Assessment/Plan Impression: Stable status post bone biopsy of the posterior skull for possible osteomyelitis , with closure of the scalp wound, 4 days ago, with pathology negative for osteomyelitis. Though no culture was obtained, he should not require any further intervention given the negative pathology. He also underwent I&D of the left foot, with amputation of the great toe, and Podiatry did not feel there was any concern for residual osteomyelitis. He remains afebrile with white blood cell count normal off antibiotics. Suggestion: 1. Continue to follow off antibiotics Will no longer follow at this time, but please call with any questions
[2016-08-19 15:36] LABS: ABSOLUTE BASOPHIL COUNT 0.1 /CUMM (0.0-0.2)
[2016-08-19 15:44] LABS: ABSOLUTE EOSINOPHIL COUNT 0.6 /CUMM (0.0-0.7); ABSOLUTE GRANULOCYTE CT 8.7 /CUMM (1.4-6.5); ABSOLUTE LYMPH COUNT 1.8 /CUMM (1.2-3.4); ABSOLUTE MONOCYTE COUNT 0.4 /CUMM (0.10-0.60); BASOPHIL % 0.5 % (0.0-2.0); MEAN CORPUSCULAR HGB 27.9 PG (27.0-31.0); MEAN CORPUSCULAR HGB CONC 32.4 G/DL (33.0-37.0); MEAN CORPUSCULAR VOLUME 85.9 FL (80.0-94.0); MEAN PLATELET VOLUME 7.9 FL (7.4-10.4); RBC DISTRIBUTION WIDTH 16.9 % (11.5-14.5); WHITE BLOOD CELL COUNT 11.6 /CUMM (4.8-10.8)
[2016-08-19 15:46] LABS: HEMATOCRIT 41.2 % (42-52); PLATELET COUNT 312 /CUMM (130-400); RED BLOOD CELL CT 4.79 /CUMM (4.70-6.10)
[2016-08-19 22:52] VITALS: BP 160/110
[2016-08-20 07:04] VITALS: BP 90/58
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
[2016-08-20 09:20] VITALS: BP 118/78
[2016-08-20] MEDS ORDERED: BACITRACIN ZIN120 GM TOP (13:07)
[2016-08-20] MEDS ORDERED: DIPHENHYDRAMINE25 M4 PO (13:07)
[2016-08-20] MEDS ORDERED: DOCUSATE SODIU100 M3 PO (13:07)
[2016-08-20] MEDS ORDERED: BISAC-EVAC10 M1 PR (13:07)
[2016-08-20 14:51] VITALS: BP 130/70
[2016-08-20 15:19] VITALS: BP 130/70
== END 2016-08-20 17:00 | DRG 573 ==
LOC: ERH 21:10 → 2NA 23:04 → ERHI 23:04 → ENRESERV 08-10 01:07 → CANRESERV 08-10 01:07 → ENRESERV 08-10 01:58 → 2NA 08-10 02:13 → ENPENDDIS 08-20 14:39 → 2NA 08-20 17:00
PROVIDERS: Emergency Medicine; Internal Medicine; Student in an Organized Health Care Education/Training Program; ADMIT Internal Medicine
PROC: 0NB00ZX Excision of Skull, Open Approach, Diagnostic (ICD-10-PCS; principal; 2016-08-14)
PROC: 0JQ00ZZ Repair Scalp Subcutaneous Tissue and Fascia, Open Approach (ICD-10-PCS; principal; 2016-08-14)
PROC: 0JB00ZZ Excision of Scalp Subcutaneous Tissue and Fascia, Open Approach (ICD-10-PCS; principal; 2016-08-14)
PROC: 0HXNXZZ Transfer Left Foot Skin, External Approach (ICD-10-PCS; 2016-08-14)
PROC: 0J9R0ZZ Drainage of Left Foot Subcutaneous Tissue and Fascia, Open Approach (ICD-10-PCS; 2016-08-14)
PROC: 0Y6Q0Z0 Detachment at Left 1st Toe, Complete, Open Approach (ICD-10-PCS; 2016-08-14)
PROC: 0JQR0ZZ Repair Left Foot Subcutaneous Tissue and Fascia, Open Approach (ICD-10-PCS; 2016-08-14)
DX: L89.814 Pressure ulcer of head, stage 4 (principal); G82.50 Quadriplegia, unspecified; L89.302 Pressure ulcer of unspecified buttock, stage 2; E46 Unspecified protein-calorie malnutrition; E87.2 Acidosis; M86.8X7 Other osteomyelitis, ankle and foot; T76.01XA Adult neglect or abandonment, suspected, initial encounter; T83.511A Infection and inflammatory reaction due to indwelling urethral catheter, initial encounter; N39.0 Urinary tract infection, site not specified; N31.2 Flaccid neuropathic bladder, not elsewhere classified; S14.109S Unspecified injury at unspecified level of cervical spinal cord, sequela; R62.7 Adult failure to thrive; F41.9 Anxiety disorder, unspecified; F32.89 Other specified depressive episodes; Z68.23 Body mass index [BMI] 23.0-23.9, adult; I87.8 Other specified disorders of veins; M81.0 Age-related osteoporosis without current pathological fracture; W16.42XS Fall into unspecified water causing other injury, sequela
CPT/HCPCS: 2NAP; ERO; 36415; 73630-LT; 73630-RT; 80307; 81001; 82436; 87040; 87086; 88305; 88307; 93005; 93010; 96361; 96374; 96375; 97110-GO; 97165-GO; J0131; J0696; J1650; J2001; J3490

== ENCOUNTER 2016-10-13 11:01 | Inpatient (IN) | payer OTHER, MEDICARE ==
[~2016-10-13] VITALS: Ht 170.2 cm; Wt 68.0 kg
[~2016-10-13 11:01] MED LIST: ADVIL100 MG PO; ASPIRIN81 M4 PO; BACITRACIN ZIN120 GM TOP; BISAC-EVAC10 M1 PR; DIPHENHYDRAMINE25 M4 PO; DOCUSATE SODIU100 M3 PO; FLUOXETINE HCL10 M2 PO; PROZAC10 M1 PO; VALIUM2 M1 PO
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
--- NOTE | 2016-10-13 11:06 | NUR ---
PT BIBA FROM [facility] FOR ?SYNCOPE EPISODE 3 WEEKS AGO. PER EMS PT BELIEVE HIS PACER STOPPED. PT STATES HE DID A SELF TRIAL WITH A RADIO AND DID NOT HEAR HIS PACER WORKING. PER EMS PT FOUND TO HAVE A HR RANGING FROM 30-140. PER MEDIC NO PACER SPIKES SEEN ON MONITOR. PT HAS NO COMPLAINTS AT THIS TIME BUT IS CONCERNED ABOUT HIS PACER WORKING. PT DENIES CHEST PAIN AND SOB
[2016-10-13] MEDS ORDERED: ACIDOPHILUS1 EACH PO (11:15)
[2016-10-13] MEDS ORDERED: PREDNISONE20 M1 PO (11:16)
[2016-10-13] MEDS ORDERED: TETRACYCLINE H500 M2 PO (11:16)
[2016-10-13] MEDS ORDERED: MIDODRINE HCL10 M1 PO (11:17)
[2016-10-13] MEDS ORDERED: ZANAFLEX2 M2 PO (11:18)
[2016-10-13] MEDS ORDERED: KETOCONAZOLE15 GM TOP (11:18)
[2016-10-13] MEDS ORDERED: LAMISIL AT30 GM TOP (11:19)
[2016-10-13] MEDS ORDERED: BISCOLAX10 M1 RC (11:20)
[2016-10-13] MEDS ORDERED: MELATONIN3 M4 PO (11:21)
[2016-10-13] MEDS ORDERED: FLUOXETINE HCL40 M1 PO (11:22)
[2016-10-13] MEDS ORDERED: MIRALAX17 G1 PO (11:23)
[2016-10-13 11:34] LABS: ABSOLUTE BASOPHIL COUNT 0.1 /CUMM (0.0-0.2); ABSOLUTE EOSINOPHIL COUNT 0.7 /CUMM (0.0-0.7); ABSOLUTE GRANULOCYTE CT 11.6 /CUMM (1.4-6.5); ABSOLUTE LYMPH COUNT 3.4 /CUMM (1.2-3.4); ABSOLUTE MONOCYTE COUNT 1.3 /CUMM (0.10-0.60); BASOPHIL % 0.4 % (0.0-2.0); EOSINOPHIL % 3.9 % (0-5); HEMATOCRIT 42.7 % (42-52); MEAN CORPUSCULAR HGB 27.2 PG (27.0-31.0); MEAN CORPUSCULAR HGB CONC 32.6 G/DL (33.0-37.0); MEAN CORPUSCULAR VOLUME 83.4 FL (80.0-94.0); MEAN PLATELET VOLUME 7.4 FL (7.4-10.4); PLATELET COUNT 303 /CUMM (130-400); RED BLOOD CELL CT 5.13 /CUMM (4.70-6.10); WHITE BLOOD CELL COUNT 17.1 /CUMM (4.8-10.8)
[2016-10-13 11:43] LABS: PT 13.5 SEC (9.4-12.5); PTT 38 SEC (25-37)
--- NOTE | 2016-10-13 12:25 | RADIOLOGY REPORT ---
EXAMINATION: XR PORTABLE CHEST CLINICAL INFORMATION: Cardiomegaly. Syncope. COMPARISON: Multiple chest x-rays most recent prior dated 08/09/2016 TECHNIQUE: Portable frontal view of the chest was obtained. FINDINGS: Right-sided single-lead pacemaker device in place. Lungs are clear. Bandlike opacity projecting upon the left base likely from overlying soft tissues. Bony thorax is intact. IMPRESSION: No acute pulmonary disease.
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
--- NOTE | 2016-10-13 13:25 | NUR ---
URINE CULTURE SENT + 1ST & 2ND BC
--- NOTE | 2016-10-13 13:48 | NUR ---
PT RENÉG IN ROOM IN NAD
--- NOTE | 2016-10-13 16:24 | NUR ---
PT TO MRI
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
--- NOTE | 2016-10-13 18:47 | NUR ---
BED ASSIGNMENT [id number]
--- NOTE | 2016-10-13 19:10 | ECHOCARDIOGRAM REPORT ---
SHELDON MCNEAL Age: 56 : 1960 Gender: M Exam Date: 10/13/2016 14:37 Exam Location: ER Ht (in): 67 Wt (lb): 155 BSA: 1.83 BP: 135 / 94 Ordering Physician: JOHNY YANEZ MD Referring Physician: Gordo Garcia MD Chief, SoC Technologist: Génesis Aldrich RDCS Room Number: ER#[id number] Indications: CARDIOMYOPATHY Rhythm: Other Technical Quality: Technically difficult study FINDINGS Left Ventricle Normal left ventricular size and wall thickness. There is mildly decreased global systolic function. The ejection fraction appears to be 45-50% visually. Right Ventricle Normal right ventricular size and function. Catheter/pacemaker wire in the right ventricular cavity. Right Atrium Normal right atrial size. Left Atrium Normal left atrial size. Mitral Valve Mitral valve normal in structure and function. Mild mitral regurgitation. Aortic Valve Aortic valve not well visualized, grossly normal. No aortic stenosis. No aortic regurgitation. Tricuspid Valve Tricuspid valve not well visualized, grossly normal. No tricuspid regurgitation. Unable to estimate the right ventricular systolic pressure. Pulmonic Valve Pulmonic valve not well visualized. Pericardium No pericardial or pleural effusion. Great Vessels Normal size aortic root. CONCLUSIONS This is a technically limited and difficult study. Normal left ventricular size and wall thickness. There is mildly decreased global systolic function. The ejection fraction appears to be 45-50% visually. Catheter/pacemaker wire in the right ventricular cavity. Normal left atrial size. Mitral valve normal in structure and function. Mild mitral regurgitation. Aortic valve not well visualized, grossly normal. Unable to estimate the right ventricular systolic pressure. Gordo Garcia M.D. (Electronically Signed) Final Date: 13 October 2016 19:09 MEASUREMENTS (Male / Female) Normal Values 2D ECHO LV Diastolic Diameter PLAX 3.6 cm 4.2 - 5.9 / 3.9 - 5.3 cm LV Systolic Diameter PLAX 2.8 cm 2.1 - 4.0 cm LV Fractional Shortening PLAX 22.2 % 25 - 46 % LV Ejection Fraction 2D Teich 45.7 % IVS Diastolic Thickness 1.0 cm LVPW Diastolic Thickness 1.0 cm LV Relative Wall Thickness 0.6 RV Internal Dim ED PLAX 2.3 cm 1.9 - 3.8 cm LVOT Diameter 2.0 cm Aortic Root Diameter 2.8 cm LA Systolic Diameter LX 2.8 cm 3.0 - 4.0 / 2.7 - 3.8 cm Ascending Aorta Diameter 3.1 cm DOPPLER AV Peak Velocity 86.9 cm/s AV Peak Gradient 3.0 mmHg AV Mean Velocity 64.0 cm/s AV Mean Gradient 2.0 mmHg AV Velocity Time Integral 13.1 cm LVOT Peak Velocity 44.2 cm/s LVOT Peak Gradient 0.8 mmHg LVOT Mean Velocity 28.0 cm/s LVOT Mean Gradient 0.0 mmHg LVOT Velocity Time Integral 6.1 cm LVOT Stroke Volume 19.2 cm AV Area Cont Eq vti 1.5 cm AV Area Cont Eq pk 1.6 cm MV Peak Velocity 58.5 cm/s MV Peak Gradient 1.4 mmHg MV Mean Velocity 37.2 cm/s MV Mean Gradient 1.0 mmHg Mitral E Point Velocity 29.4 cm/s Mitral A Point Velocity 42.0 cm/s Mitral E to A Ratio 0.7 MV PHT Velocity 61.5 cm/s MV Deceleration Jones 195.0 cm/s MV Pressure Half Time 94.6 ms MV Area PHT 2.3 cm MV Deceleration Time 209.5 ms PV Peak Velocity 66.1 cm/s PV Peak Gradient 1.7 mmHg PV Mean Velocity 46.1 cm/s PV Mean Gradient 1.0 mmHg PV Velocity Time Integral 11.1 cm LV E' Lateral Velocity 7.3 cm/s Mitral E to LV E' Lateral Ratio 4.0 LV E' Septal Velocity 4.5 cm/s Mitral E to LV E' Septal Ratio 6.6
[2016-10-13 20:41] VITALS: BP 162/100
[2016-10-13 23:23] VITALS: BP 152/98
[2016-10-14 06:54] VITALS: BP 168/108
[2016-10-14 08:31] LABS: ABSOLUTE BASOPHIL COUNT 0 /CUMM (0.0-0.2); ABSOLUTE EOSINOPHIL COUNT 0.4 /CUMM (0.0-0.7); ABSOLUTE GRANULOCYTE CT 8.1 /CUMM (1.4-6.5); ABSOLUTE LYMPH COUNT 2.8 /CUMM (1.2-3.4); ABSOLUTE MONOCYTE COUNT 0.8 /CUMM (0.10-0.60); BASOPHIL % 0.3 % (0.0-2.0); GRANULOCYTE % 66.9 % (42.2-75.2); HEMATOCRIT 40.6 % (42-52); MEAN CORPUSCULAR HGB CONC 32.3 G/DL (33.0-37.0); MEAN CORPUSCULAR VOLUME 83.7 FL (80.0-94.0); MEAN PLATELET VOLUME 8.2 FL (7.4-10.4); PLATELET COUNT 222 /CUMM (130-400); RBC DISTRIBUTION WIDTH 16.1 % (11.5-14.5); RED BLOOD CELL CT 4.86 /CUMM (4.70-6.10); WHITE BLOOD CELL COUNT 12.2 /CUMM (4.8-10.8)
[2016-10-14 08:38] VITALS: BP 150/100
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
--- NOTE | 2016-10-14 10:38 | PN- Cardiology ---
Subjective Subjective: The patient is feeling better. He is not having any dizziness. He states he has been upright in bed without any problems. He is concerned that maybe part of his problem is hypoglycemia. His sugars have not been measured here in the hospital. He is not diabetic. He remains on Midodrine at a dosing interval 8 AM, 12, 4 PM. 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 His minimal rate is around 60 and he is occasionally as high as the 90s to low 100s. He has occasional periods of regular rhythm in the 90s possibly a a junctional rhythm. His minimal heart rate is around 60. He has not had anything less than that. Objective Vital Signs and I&Os Vital Signs Date Time Temp Pulse Resp B/P B/P Pulse O2 O2 Flow FiO2 Mean Ox Delivery Rate 10/14 0838 150/100 10/14 0654 98.9 84 20 168/108 99 Room Air 10/13 2323 99.1 60 20 152/98 99 Room Air 10/13 2041 99.8 105 22 162/100 99 Room Air 10/13 1919 97.1 104 20 153/94 98 Room Air 10/13 1601 99.3 98 18 165/125 99 Room Air 10/13 1516 98.1 10/13 1407 99.4 10/13 1329 99.4 96 18 135/94 99 Room Air 10/13 1114 97.8 95 22 182/117 100 Room Air Intake & Output 10/14 1600 11 0800 10/14 0000 10/13 1600 10/13 0800 10/13 0000 Intake Total 360 480 540 Output Total 650 Balance -290 480 540 Intake, Oral 360 480 540 Output, Urine 650 Patient 150 lb 155 lb Weight Weight Estimated Reported by Patient Measurement Method Physical Exam: He is in no distress lying semi-upright HEENT exam is normal Chest clear to limited exam Heart slightly irregular no murmurs Extremities no edema Current Medications: Current Medications Sig/Ellen Start time Last Medication Dose Route Stop Time Status Admin Acetaminophen 0 .STK-MED ONE 10/13 1410 DC PO Acetaminophen 650 MG Q6P PRN 10/13 1215 AC 10/13 PO 1407 Aspirin 81 MG DAILY 10/14 1000 AC PO Atorvastatin Calcium 20 MG 1700 10/13 1700 AC PO Bisacodyl 10 MG DAILY PRN 10/13 1345 AC TN Diazepam 2 MG Q6P PRN 10/13 1345 AC PO Docusate Sodium 100 MG DAILY NEEDED PRN 10/13 1345 AC PO Doxycycline Hyclate 100 MG BID 10/13 2200 AC 10/13 PO 10/19 2300 2213 Enoxaparin Sodium 40 MG DAILY 10/14 1000 AC SC Fluoxetine HCl 40 MG QAM 10/14 1000 AC PO Lactobacillus 1 CAP BID 10/13 1344 AC 10/13 Acidophilus PO 2213 Melatonin 3 MG QPM 10/13 220 AC 10/13 PO 2213 Midodrine 10 MG 0800,1200,1600 10/13 1600 AC PO Oxycodone HCl 10 MG Q6P PRN 10/13 1215 AC PO Oxycodone/ 2 TAB Q6 PRN 10/13 1215 AC Acetaminophen PO Prednisone 0 .STK-MED ONE 10/13 1443 DC PO Prednisone 20 MG DAILY 10/13 1400 AC 10/13 PO 10/15 1400 1515 Tizanidine HCl 2 MG BID PRN 10/13 1400 AC PO Results Last 48 Hrs of Labs/Mics: Laboratory Tests 10/14/16 0640: Anion Gap 13, Estimated GFR > 60, BUN/Creatinine Ratio 58.0 H, Triglycerides 72 , Cholesterol 156, LDL Cholesterol, Calc 99, HDL Cholesterol 43, Cholesterol/HDL Ratio 4, CBC w Diff NO MAN DIFF REQ, RBC 4.86, MCV 83.7, MCH 27.0, RDW 16.1 H, MPV 8.2, Gran % 66.9, Lymphocytes % 23.3, Monocytes % 6.5, Eosinophils % 3.0, Basophils % 0.3, Absolute Granulocytes 8.1 H, Absolute Lymphocytes 2.8, Absolute Monocytes 0.8 H, Absolute Eosinophils 0.4, Absolute Basophils 0, PUBS MCHC 32.3 L 10/14/16 0110: Troponin I < 0.01 10/13/16 1701: Troponin I < 0.01 10/13/16 1318: Urinalysis LIGHT H, Urine Color YEL, Urine Clarity HAZY H, Urine pH 6.0, Ur Specific [place] 1.015, Urine Protein TRACE H, Urine Ketones NEG, Urine Nitrite POS H, Urine Bilirubin NEG, Urine Urobilinogen 0.2, Ur Leukocyte Esterase LARGE H, Ur Microscopic SEDIMENT EXAMINED, Urine RBC 3-5, Urine WBC > 75 H, Ur Epithelial Cells FEW, Urine Bacteria FEW H, Urine Mucus FEW, Urine Hemoglobin MOD H, Urine Glucose NEG 10/13/16 1120: Anion Gap 14, Estimated GFR > 60, BUN/Creatinine Ratio 44.0 H, Glucose 120 H, Calcium 10.2, Total Bilirubin 1.1, AST 27, ALT 28, Alkaline Phosphatase 98, Troponin I < 0.01, Total Protein 8.5 H, Albumin 4.3, Globulin 4.2, Albumin/ Globulin Ratio 1.0 L, PT 13.5 H, INR 1.29 H, APTT 38 H, CBC w Diff MAN DIFF ORDERED, RBC 5.13, MCV 83.4, MCH 27.2, RDW 16.0 H, MPV 7.4, Gran % 68.0, Lymphocytes % 19.9 L, Monocytes % 7.8, Eosinophils % 3.9, Basophils % 0.4, Absolute Granulocytes 11.6 H, Segmented Neutrophils 72, Band Neutrophils 3, Absolute Lymphocytes 3.4, Lymphocytes 18 L, Monocytes 3, Absolute Monocytes 1.3 H, Eosinophils 4, Absolute Eosinophils 0.7, Absolute Basophils 0.1, Platelet Estimate ADEQUATE, Normocytic RBCs VERIFIED, Normochromic RBCs VERIFIED, PUBS MCHC 32.6 L Recent Imaging Studies: CONCLUSIONS This is a technically limited and difficult study. Normal left ventricular size and wall thickness. There is mildly decreased global systolic function. The ejection fraction appears to be 45-50% visually. Catheter/pacemaker wire in the right ventricular cavity. Normal left atrial size. Mitral valve normal in structure and function. Mild mitral regurgitation. Aortic valve not well visualized, grossly normal. Unable to estimate the right ventricular systolic pressure. Gordo Garcia M.D. (Electronically Signed) Final Date: 13 October 2016 19:09 Assessment/Plan Assessment/Plan Henry's main problem still appears to be postural hypotension due to autonomic insufficiency. I recommend adding Florinef to the regimen. I recommend changing his Midodrine dosage to every 8 hours. I recommend a neurology consultation. I am still not sure that replacing his pacemaker would help him, as it would lead to basically VVI pacing with still A-V dissociation as it is only a single chamber lead. We could consider that or possibly even upgrading his device to a dual-chamber device, possibly inserting an entirely new system from the other side, as his ventricular lead is 25+ years old. Continue telemetry? Yes
[2016-10-14 12:40] VITALS: BP 156/94
--- NOTE | 2016-10-14 16:38 | NUR ---
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 which as reported by pt required surgical closure of wound upon assessment, pt noted wtih a surgical resolved stage 4 pressure injury to posterior scalp - no alteration visualized at this time - left foot non healing sx wound 2 x 1 cm clean red fill - no evidence of infection - podiatric eval unremarkable at this time despite left foot amp wound, and overgrowth of nail beds with fungal changes slight blanchable erythema noted to coccyx/buttocks, although areas of skin breakdown have since healed to closure recommendation: obtain group 2 mattress as pt is at high rish for breakdown due to comorbidities - cleanse foot wound with ns fb adaptic and dpd daily - skin protocol per stage 1 pressure ulcer guidelines - q 1 hour respositioning (bea to head wound please) as pt high risk
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
[2016-10-14 17:45] VITALS: BP 157/94
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
--- NOTE | 2016-10-14 19:55 | NUR ---
NURSING NOTE; ORTHOS CHECKED USING AUTOCUFF UNABLE TO AUSCULTATE BLOOD PRESSURE. WHILE LYING FLAT BP 166/102. SITTING BP 159/108. PT LEFT IN UPRIGHT POSITION PER PT REQUEST AND BP RECHECKED. AT 1810 BP 77/69 AND PT WAS SYMPTOMATIC WITH DIZZINESS. BP RECHECKED AT 1820 103/76. MIDODRINE GIVEN ORDERED.
[2016-10-14 23:01] VITALS: BP 156/83
[2016-10-15 07:28] VITALS: BP 160/110
[2016-10-15 07:50] VITALS: BP 164/102
--- NOTE | 2016-10-15 07:57 | NUR ---
PT IS HYPERTENSIVE 164/102. DENIES PAIN. MIDODRINE HELD. DR.ADAMBEKE RAMIREZ WAS UPDATED
[2016-10-15 08:05] LABS: ABSOLUTE BASOPHIL COUNT 0.1 /CUMM (0.0-0.2); ABSOLUTE EOSINOPHIL COUNT 0.9 /CUMM (0.0-0.7); ABSOLUTE GRANULOCYTE CT 8.1 /CUMM (1.4-6.5); ABSOLUTE LYMPH COUNT 3.4 /CUMM (1.2-3.4); ABSOLUTE MONOCYTE COUNT 0.8 /CUMM (0.10-0.60); BASOPHIL % 0.5 % (0.0-2.0); GRANULOCYTE % 61.2 % (42.2-75.2); MEAN CORPUSCULAR HGB 27.2 PG (27.0-31.0); MEAN CORPUSCULAR HGB CONC 32.5 G/DL (33.0-37.0); MEAN CORPUSCULAR VOLUME 83.8 FL (80.0-94.0); MEAN PLATELET VOLUME 8.1 FL (7.4-10.4); PLATELET COUNT 201 /CUMM (130-400); RED BLOOD CELL CT 4.66 /CUMM (4.70-6.10); WHITE BLOOD CELL COUNT 13.3 /CUMM (4.8-10.8)
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
--- NOTE | 2016-10-15 08:31 | ULTRASOUND REPORT ---
EXAMINATION: US-RIGHT LOW EXTR ARTERIAL DOP CLINICAL INFORMATION: Right foot ischemia. COMPARISON: None TECHNIQUE: Real-time ultrasound and Doppler techniques (integrating B-mode 2-D vascular images, Doppler spectral analysis and color flow Doppler imaging) were utilized to interrogate the lower extremities. FINDINGS: Triphasic waveform is noted within the common femoral artery. Biphasic waveforms are noted throughout the remainder of the right lower extremity arteries. Peak systolic velocities as below. Mild scattered atherosclerotic plaque is noted. Common femoral artery: 197 cm/sec Superficial femoral artery proximal: 105 cm/sec Superficial femoral artery mid portion: 23 cm/sec Superficial femoral artery distal: 26 cm/sec Profunda artery: 104 cm/sec Popliteal artery: 112 cm/sec Posterior tibial artery: 60 cm/sec Anterior tibial artery: 57 cm/sec Dorsalis pedis artery: 42 cm/sec IMPRESSION: No definite sonographic evidence of hemodynamically significant peripheral arterial disease. Color Doppler flow is noted throughout the right lower extremity arterial system. Greater sensitivity and specificity can be obtained with pre-and post exercise PVRs with RAYO calculations. Also consider dedicated CTA for further anatomical detail, if clinically indicated.
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
--- NOTE | 2016-10-15 13:12 | PN- Cardiology ---
Subjective Subjective: The patient is complaining of dizziness with more upright position. He has been started on Florinef and remains on Midodrine. Neurology has suggested switching to Northera if Midodrine is not effective. This is a newer allegedly more efficacious agent. He remains with an adequate heart rate which is not gone below the 60s although his rhythm has varied degrees of heart block, although probably not complete. On pacemaker transmission there was no evidence of pacemaker activity. Objective Vital Signs and I&Os Vital Signs Date Time Temp Pulse Resp B/P B/P Pulse O2 O2 Flow FiO2 Mean Ox Delivery Rate 10/15 1115 78 164/102 10/15 0750 164/102 10/15 0728 97.6 78 20 160/110 98 Room Air 10/14 2301 98.3 102 20 156/83 100 Room Air 10/14 1745 98.4 100 20 157/94 100 Room Air Intake & Output 10/15 1600 10/15 0800 10/15 0000 10/14 1600 10/14 0800 10/14 0000 Intake Total 120 540 560 360 480 Output Total 451 250 200 650 Balance -331 290 360 -290 480 Intake, Oral 120 540 560 360 480 Number 2 1 Bowel Movements Output, Stool 1 Output, Urine 450 250 200 650 Patient 150 lb Weight Weight Estimated Measurement Method Physical Exam: He is in no distress lying at about a 20 angle HEENT exam normal Chest clear Heart regular at this time with no murmurs Current Medications: Current Medications Sig/Ellen Start time Last Medication Dose Route Stop Time Status Admin Acetaminophen 650 MG Q6P PRN 10/13 1215 AC 10/14 PO 1223 Aspirin 81 MG DAILY 10/14 1000 AC 10/15 PO 0929 Atorvastatin Calcium 20 MG 1700 10/13 1700 AC PO Bisacodyl 10 MG DAILY PRN 10/13 1345 AC VT Diazepam 2 MG Q6P PRN 10/13 1345 AC PO Docusate Sodium 100 MG DAILY NEEDED PRN 10/13 1345 AC PO Doxycycline Hyclate 100 MG BID 10/13 2200 AC 10/15 PO 10/19 230 0929 Enoxaparin Sodium 40 MG DAILY 10/14 1000 AC 10/15 SC 0929 Fludrocortisone 100 MCG DAILY 10/14 1137 AC 10/15 Acetate PO 0929 Fluoxetine HCl 40 MG QAM 10/14 1000 AC 10/15 PO 0930 Lactobacillus 1 CAP BID 10/13 1344 AC 10/15 Acidophilus PO 0930 Lisinopril 5 MG DAILY 10/15 1015 AC 10/15 PO 1115 Melatonin 3 MG QPM 10/13 2200 AC 10/14 PO 2123 Midodrine 2.5 MG 0800,1200,1600 10/14 1200 DC 10/14 PO 1846 Oxycodone HCl 10 MG Q6P PRN 10/13 1215 AC PO Oxycodone/ 2 TAB Q6 PRN 10/13 1215 AC Acetaminophen PO Polyethylene Glycol 17 GM DAILY 10/14 1552 AC 10/15 PO 0929 Prednisone 20 MG DAILY 10/13 1400 AC 10/15 PO 10/15 1400 0930 Tizanidine HCl 2 MG BID PRN 10/13 1400 AC PO Results Last 48 Hrs of Labs/Mics: 10/15/16 0621: Anion Gap 12, Estimated GFR > 60, BUN/Creatinine Ratio 56.0 H, CBC w Diff NO MAN DIFF REQ, RBC 4.66 L, MCV 83.8, MCH 27.2, RDW 16.0 H, MPV 8.1, Gran % 61.2 , Lymphocytes % 25.3, Monocytes % 6.0, Eosinophils % 7.0 H, Basophils % 0.5, Absolute Granulocytes 8.1 H, Absolute Lymphocytes 3.4, Absolute Monocytes 0.8 H, Absolute Eosinophils 0.9, Absolute Basophils 0.1, PUBS MCHC 32.5 L 10/14/16 2330: Troponin I Cancelled 10/14/16 0640: Anion Gap 13, Estimated GFR > 60, BUN/Creatinine Ratio 58.0 H, Triglycerides 72 , Cholesterol 156, LDL Cholesterol, Calc 99, HDL Cholesterol 43, Cholesterol/HDL Ratio 4, CBC w Diff NO MAN DIFF REQ, RBC 4.86, MCV 83.7, MCH 27.0, RDW 16.1 H, MPV 8.2, Gran % 66.9, Lymphocytes % 23.3, Monocytes % 6.5, Eosinophils % 3.0, Basophils % 0.3, Absolute Granulocytes 8.1 H, Absolute Lymphocytes 2.8, Absolute Monocytes 0.8 H, Absolute Eosinophils 0.4, Absolute Basophils 0, PUBS MCHC 32.3 L 10/14/16 0110: Troponin I < 0.01 10/13/16 1701: Troponin I < 0.01 10/13/16 1318: Urinalysis LIGHT H, Urine Color YEL, Urine Clarity HAZY H, Urine pH 6.0, Ur Specific [place] 1.015, Urine Protein TRACE H, Urine Ketones NEG, Urine Nitrite POS H, Urine Bilirubin NEG, Urine Urobilinogen 0.2, Ur Leukocyte Esterase LARGE H, Ur Microscopic SEDIMENT EXAMINED, Urine RBC 3-5, Urine WBC > 75 H, Ur Epithelial Cells FEW, Urine Bacteria FEW H, Urine Mucus FEW, Urine Hemoglobin MOD H, Urine Glucose NEG Assessment/Plan Assessment/Plan Henry's main problem still appears to be postural hypotension due to autonomic insufficiency. He is on an appropriate regimen for this.I am still not sure that replacing his pacemaker would help him, as it would lead to basically VVI pacing with still A-V dissociation as it is only a single chamber lead. I discussed this with the patient and he is more or less in favor of not replacing the device at this time. He definitely has not had any significant bradycardia that might cause symptoms. Continue telemetry? Yes
--- NOTE | 2016-10-15 19:58 | NUR ---
ORTHOSTATICS DONE AND REPORTED TO THE TEAM INCLUDING DR.ADAMBEKE RAMIREZ. PT REPORTED THAT HE WAS EXPERIENCING MUSCLE SPASMS WHILE BP TAKEN LYING FLAT AND THAT BP USUALLY GOES REALLY HIGH WHEN THAT HAPPENS. PT HAD NO EPISODES OF DIZZINESS OR LIGHTHEADEDNESS DURING ALL BLOOD PRESSURES TAKEN. BELOW ARE BPs ALONG WITH TIME SPAN IN BETWEEN BPs (ALL MANUAL BPs) LYING 190/140 (TRIPPLE CHECKED DENIED HEADACHE) HR 100 1 MIN LATER SITTIN/136 30 SEC LATER SITTIN/124 30 SEC: 174/118 30 SEC: 146/110 1 MIN LATER SITTING : 132/104 HR 113 1 MIN: 112/96 HR 112 1 MIN: 108/90 HR 112
[2016-10-15 21:20] VITALS: BP 200/90
[2016-10-15 21:30] VITALS: BP 118/92
[2016-10-16 07:49] VITALS: BP 136/82
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
[2016-10-16 08:00] VITALS: BP 160/100
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
[2016-10-16 08:53] LABS: ABSOLUTE BASOPHIL COUNT 0.1 /CUMM (0.0-0.2); ABSOLUTE EOSINOPHIL COUNT 0.8 /CUMM (0.0-0.7); ABSOLUTE GRANULOCYTE CT 11.6 /CUMM (1.4-6.5); ABSOLUTE LYMPH COUNT 3.3 /CUMM (1.2-3.4); ABSOLUTE MONOCYTE COUNT 0.9 /CUMM (0.10-0.60); BASOPHIL % 0.3 % (0.0-2.0); EOSINOPHIL % 4.8 % (0-5); GRANULOCYTE % 69.9 % (42.2-75.2); HEMATOCRIT 38.6 % (42-52); MEAN CORPUSCULAR HGB 27.3 PG (27.0-31.0); MEAN CORPUSCULAR HGB CONC 32.2 G/DL (33.0-37.0); MEAN CORPUSCULAR VOLUME 84.8 FL (80.0-94.0); MEAN PLATELET VOLUME 8.3 FL (7.4-10.4); PLATELET COUNT 227 /CUMM (130-400); RBC DISTRIBUTION WIDTH 16.9 % (11.5-14.5); RED BLOOD CELL CT 4.55 /CUMM (4.70-6.10); WHITE BLOOD CELL COUNT 16.6 /CUMM (4.8-10.8)
[2016-10-16] MEDS ORDERED: FLUDROCORTISON0.1 M1 PO (11:54)
--- NOTE | 2016-10-16 11:58 | Patient Discharge Instructions ---
Discharge Instructions General Discharge Information You were seen/treated for: Syncope Autonomic insufficiency Special Instructions: Follow up with Neurologist within 1 week Follow up with Facilities Maintenance Technician within 1 week Follow-up with primary care doctor in 1 week after discharge Please complete antibiotics doxycycline for urinary tract infection Please stop midodrine Please take Florinef for orthostatic hypotension. Please take tizadinie 4 mg at bedtime daily and 2 mg in the morning as needed for muscle spasms Diet Continue normal diet: Yes Activity Activity Self Limited: Yes Acute Coronary Syndrome Inclusion Criteria At DC or during hospital stay patient has or had the following: ACS DIAGNOSIS No Discharge Core Measures Meds if any: Prescribed or Continued at Discharge Meds if any: NOT Prescribed or Continued at Discharge Congestive Heart Failure Inclusion Criteria At DC or during hospital stay patient has or had the following: CHF DIAGNOSIS No Discharge Core Measures Meds if any: Prescribed or Continued at Discharge Meds if any: NOT Prescribed or Continued at Discharge Cerebrovascular accident Inclusion Criteria At DC or during hospital stay patient has or had the following: CVA/TIA Diagnosis No Discharge Core Measures Meds if any: Prescribed or Continued at Discharge Meds if any: NOT Prescribed or Continued at Discharge Venous thromboembolism Inclusion Criteria VTE Diagnosis No VTE Type NONE VTE Confirmed by (Test) NONE Discharge Core Measures - Per Current guidelines, there needs to be overlap - treatment for the first 5 days of Warfarin therapy. - If discharged on Warfarin prior to 5 days of - overlap therapy, the patient will need to be - assessed for post discharge needs including - *Post discharge parental anticoagulation - *Warfarin and/or parental anticoagulation education - *Follow up date to check INR post discharge At least 5 days overlap therapy as Inpatient No Meds if any: Prescribed or Continued at Discharge Note: Overlap Therapy is Warfarin and Anticoagulant Meds if any: NOT Prescribed or Continued at Discharge
[2016-10-16] MEDS ORDERED: LISINOPRIL5 M1 PO (12:29)
[2016-10-16] MEDS ORDERED: VIBRAMYCIN100 MG PO (12:34)
--- NOTE | 2016-10-16 12:39 | PN- Cardiology ---
Subjective Subjective: The patient is feeling better. He is not having dizziness with positional changes although he is mostly just slightly inclined. His Midodrine has been discontinued because of resting hypertension and he was started on lisinopril. He seems to be tolerating this well. He remains on Florinef. Objective Vital Signs and I&Os Vital Signs Date Time Temp Pulse Resp B/P B/P Pulse O2 O2 Flow FiO2 Mean Ox Delivery Rate 10/16 0954 90 160/100 10/16 0800 90 160/100 10/16 0749 98.3 73 20 136/82 99 Room Air 10/15 2307 99.2 106 16 97 Room Air 10/15 2130 118/92 10/15 2120 200/90 10/15 1522 98.6 91 20 99 Room Air Intake & Output 10/16 1600 10/16 0800 10/16 0000 10/15 1600 10/15 0800 10/15 0000 Intake Total 200 600 960 120 540 Output Total 1250 900 451 250 Balance -1050 -300 960 -331 290 Intake, Oral 200 600 960 120 540 Number 1 2 Bowel Movements Output, Stool 1 Output, Urine 1250 900 450 250 Physical Exam: He is in no distress Chest is clear Heart slightly irregular no murmurs Extremities no edema Current Medications: Current Medications Sig/Ellen Start time Last Medication Dose Route Stop Time Status Admin Acetaminophen 650 MG Q6P PRN 10/13 1215 AC 10/14 PO 1223 Aspirin 81 MG DAILY 10/14 1000 AC 10/16 PO 0955 Atorvastatin Calcium 20 MG 1700 07/ 1700 AC PO Bisacodyl 10 MG DAILY PRN 10/13 1345 AC AK Diazepam 2 MG Q6P PRN 10/13 1345 AC 10/15 PO 2156 Docusate Sodium 100 MG DAILY NEEDED PRN 10/13 1345 AC PO Doxycycline Hyclate 100 MG BID 10/13 2200 AC 10/16 PO 10/19 2300 0954 Enoxaparin Sodium 40 MG DAILY 10/14 1000 AC 10/15 SC 0929 Fludrocortisone 100 MCG DAILY 10/14 1137 AC 10/16 Acetate PO 0955 Fluoxetine HCl 40 MG QAM 10/14 1000 AC 10/15 PO 0930 Lactobacillus 1 CAP BID 10/13 1344 AC 10/16 Acidophilus PO 0955 Lisinopril 5 MG DAILY 10/15 1015 AC 10/16 PO 0954 Melatonin 3 MG QPM 10/13 2200 AC 10/15 PO 2128 Oxycodone HCl 10 MG Q6P PRN 10/13 1215 AC 10/16 PO 0050 Oxycodone/ 2 TAB Q6 PRN 10/13 1215 AC Acetaminophen PO Polyethylene Glycol 17 GM DAILY 10/14 1552 AC PO Prednisone 20 MG DAILY 10/13 1400 DC 10/15 PO 10/15 1400 0930 Tizanidine HCl 2 MG BID PRN 10/13 1400 AC 10/16 PO 0050 Results Last 48 Hrs of Labs/Mics: Laboratory Tests 10/16/16 0628: Anion Gap 12, Estimated GFR > 60, BUN/Creatinine Ratio 50.0 H, CBC w Diff NO MAN DIFF REQ, RBC 4.55 L, MCV 84.8, MCH 27.3, RDW 16.9 H, MPV 8.3, Gran % 69.9 , Lymphocytes % 19.5 L, Monocytes % 5.5, Eosinophils % 4.8, Basophils % 0.3, Absolute Granulocytes 11.6 H, Absolute Lymphocytes 3.3, Absolute Monocytes 0.9 H, Absolute Eosinophils 0.8, Absolute Basophils 0.1, PUBS MCHC 32.2 L 10/15/16 0621: Anion Gap 12, Estimated GFR > 60, BUN/Creatinine Ratio 56.0 H, CBC w Diff NO MAN DIFF REQ, RBC 4.66 L, MCV 83.8, MCH 27.2, RDW 16.0 H, MPV 8.1, Gran % 61.2 , Lymphocytes % 25.3, Monocytes % 6.0, Eosinophils % 7.0 H, Basophils % 0.5, Absolute Granulocytes 8.1 H, Absolute Lymphocytes 3.4, Absolute Monocytes 0.8 H, Absolute Eosinophils 0.9, Absolute Basophils 0.1, PUBS MCHC 32.5 L 10/14/16 2330: Troponin I Cancelled Assessment/Plan Assessment/Plan Henry's main problem still appears to be postural hypotension due to autonomic insufficiency. His Midodrine was discontinued and he is on low-dose lisinopril for hypertension. He has not had any bradycardia. I recommend trying to exercise him to get him to tolerate being in a more upright position. Hopefully this will help his postural symptoms. Once he is comfortable he can be discharged. He has agreed that we will not replace his pacemaker at this time. Continue telemetry? Not applicable
[2016-10-16 14:26] VITALS: BP 160/100
== END 2016-10-16 15:50 | DRG 312 ==
LOC: ERH 11:01 → 1NO 11:28 → ERHI 11:28 → ENRESERV 18:39 → ENTRNSPT 19:34 → CMPTRNSPT 20:10 → 1NO 20:11 → ENPENDDIS 10-16 13:20 → 1NO 10-16 15:50
PROVIDERS: Hospitalist; Physician Assistant Medical; Student in an Organized Health Care Education/Training Program; ADMIT Internal Medicine
DX: I95.1 Orthostatic hypotension (principal); G82.50 Quadriplegia, unspecified; G95.89 Other specified diseases of spinal cord; I44.2 Atrioventricular block, complete; N39.0 Urinary tract infection, site not specified; E16.2 Hypoglycemia, unspecified; Z95.0 Presence of cardiac pacemaker; R33.9 Retention of urine, unspecified; N31.2 Flaccid neuropathic bladder, not elsewhere classified; N39.498 Other specified urinary incontinence; F41.9 Anxiety disorder, unspecified; F32.9 Major depressive disorder, single episode, unspecified; M62.838 Other muscle spasm; R21 Rash and other nonspecific skin eruption; B95.62 Methicillin resistant Staphylococcus aureus infection as the cause of diseases classified elsewhere
CPT/HCPCS: 1NP; 87184; 36415; 81001; 82436; 87040; 87070; 87086; 87147; 93005; 93010; 93306; J1650; J3490

== ENCOUNTER 2017-04-15 09:27 | Emergency (ER) | payer OTHER, MEDICARE ==
[~2017-04-15] VITALS: Ht 170.2 cm; Wt 74.8 kg
[~2017-04-15 09:27] MED LIST changes: +ACIDOPHILUS1 EACH PO; +BISCOLAX10 M1 RC; +FLUDROCORTISON0.1 M1 PO; +FLUOXETINE HCL40 M1 PO; +KETOCONAZOLE15 GM TOP; +LAMISIL AT30 GM TOP; +LISINOPRIL5 M1 PO; +MELATONIN3 M4 PO; +MIDODRINE HCL10 M1 PO; +MIRALAX17 G1 PO; +PREDNISONE20 M1 PO; +TETRACYCLINE H500 M2 PO; +VIBRAMYCIN100 MG PO; +ZANAFLEX2 M2 PO
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
[2017-04-15 10:46] LABS: ABSOLUTE BASOPHIL COUNT 0 /CUMM (0.0-0.2); ABSOLUTE EOSINOPHIL COUNT 0.3 /CUMM (0.0-0.7); ABSOLUTE GRANULOCYTE CT 4.9 /CUMM (1.4-6.5); ABSOLUTE LYMPH COUNT 1.9 /CUMM (1.2-3.4); ABSOLUTE MONOCYTE COUNT 0.5 /CUMM (0.10-0.60); BASOPHIL % 0.5 % (0.0-2.0); EOSINOPHIL % 4.3 % (0-5); GRANULOCYTE % 64.3 % (42.2-75.2); HEMATOCRIT 39.7 % (42-52); MEAN CORPUSCULAR HGB 24.9 PG (27.0-31.0); MEAN CORPUSCULAR HGB CONC 32.2 G/DL (33.0-37.0); MEAN CORPUSCULAR VOLUME 77.2 FL (80.0-94.0); MEAN PLATELET VOLUME 8.1 FL (7.4-10.4); PLATELET COUNT 181 /CUMM (130-400); RED BLOOD CELL CT 5.14 /CUMM (4.70-6.10); WHITE BLOOD CELL COUNT 7.6 /CUMM (4.8-10.8)
[2017-04-15 10:55] LABS: PT 14.7 SEC (9.4-12.5); PTT 38 SEC (25-37)
--- NOTE | 2017-04-15 11:25 | RADIOLOGY REPORT ---
EXAMINATION: XR PORTABLE CHEST CLINICAL INFORMATION: 56-year-old man with syncope. COMPARISON: 10/13/2016 chest radiograph TECHNIQUE: Portable frontal view of the chest was obtained. FINDINGS: There is new patchy airspace disease seen at the right lung base that could reflect early pneumonia. There may also be a small right-sided pleural effusion. The left lung is predominantly clear. Heart size is prominent, although stable. A right-sided single lead defibrillator is seen in stable position. IMPRESSION: New airspace opacity at the right lung base is nonspecific and could reflect early pneumonia, perhaps with a trace right-sided effusion.
[2017-04-15] MEDS ORDERED: FLUDROCORTISON0.1 M1 PO (12:03)
[2017-04-15] MEDS ORDERED: ZITHROMAX250 M2 PO (12:03)
[2017-04-15 12:30] VITALS: BP 188/110
== END 2017-04-15 14:02 ==
LOC: ERH 09:27
PROVIDERS: Emergency Medicine
DX: I95.1 Orthostatic hypotension (principal); G82.50 Quadriplegia, unspecified
CPT/HCPCS: 71045; 93005; 93010

== ENCOUNTER 2017-05-19 09:21 | Inpatient (IN) | payer OTHER, MEDICARE ==
[~2017-05-19] VITALS: Ht 170.2 cm; Wt 74.8 kg
[~2017-05-19 09:21] MED LIST changes: +ZITHROMAX250 M2 PO
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
[2017-05-19 10:35] LABS: ABSOLUTE BASOPHIL COUNT 0.1 /CUMM (0.0-0.2); ABSOLUTE EOSINOPHIL COUNT 0.6 /CUMM (0.0-0.7); ABSOLUTE GRANULOCYTE CT 9.1 /CUMM (1.4-6.5); ABSOLUTE LYMPH COUNT 1.3 /CUMM (1.2-3.4); ABSOLUTE MONOCYTE COUNT 0.7 /CUMM (0.10-0.60); BASOPHIL % 1.3 % (0.0-2.0); EOSINOPHIL % 4.9 % (0-5); GRANULOCYTE % 76.9 % (42.2-75.2); HEMATOCRIT 43.7 % (42-52); MEAN CORPUSCULAR HGB 24.9 PG (27.0-31.0); MEAN CORPUSCULAR VOLUME 77.9 FL (80.0-94.0); PLATELET COUNT 220 /CUMM (130-400); RBC DISTRIBUTION WIDTH 18.8 % (11.5-14.5); RED BLOOD CELL CT 5.61 /CUMM (4.70-6.10); WHITE BLOOD CELL COUNT 11.9 /CUMM (4.8-10.8)
--- NOTE | 2017-05-19 11:27 | RADIOLOGY REPORT ---
EXAMINATION: XR PORTABLE CHEST CLINICAL INFORMATION: Diaphoresis. Evaluate for pneumonia. COMPARISON: 04/15/2017 TECHNIQUE: Portable frontal view of the chest was obtained. FINDINGS: Lungs are symmetrically expanded and clear. No pulmonary consolidation, pleural effusion or pneumothorax. Cardiac silhouette is normal in size. There is a cardiac pacemaker with single lead extending to the apex of the right ventricle. No acute skeletal findings. Tension band wires project over the lower cervical spine. IMPRESSION: No evidence of pneumonia. No acute cardiopulmonary findings.
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
--- NOTE | 2017-05-19 14:01 | CT SCAN REPORT ---
EXAMINATION: CT ABDOMEN AND PELVIS WITHOUT CONTRAST CLINICAL INFORMATION: Abdominal distention and decreased urine output. COMPARISON: Renal ultrasound from 01/06/2011 TECHNIQUE: Multidetector volumetric imaging was performed from the superior aspect of the liver through the pubic symphysis. Sagittal and coronal reformatted images were obtained on the technologist's workstation. DLP: 290 mGy-cm FINDINGS: LUNG BASES: Streak artifact produced by the cardiac lead extending to the apex of the right ventricle. No acute findings in the visualized lung bases. LIVER, GALLBLADDER, AND BILIARY TREE: Liver has normal size, contour and attenuation. Gallbladder is unremarkable. No intrahepatic or extrahepatic bile duct dilatation. PANCREAS: Unremarkable. SPLEEN: Spleen measures 13 cm craniocaudal dimension. No focal splenic lesion. ADRENAL GLANDS: Unremarkable. KIDNEYS AND URETERS: Kidneys have normal size, cortical thickness and attenuation. 0.8 cm cortical cyst at the lower pole of the left kidney. No suspicious renal lesion observed on these noncontrast images. No nephrolithiasis, hydronephrosis or perinephric edema. BLADDER: The urinary bladder is decompressed by a Bhat catheter. There appears to be circumferential wall thickening of the suboptimally evaluated bladder. No bladder calculi. GASTROINTESTINAL TRACT: Moderate amount of fecal material is present within the colon and rectum. There is an elongated, redundant sigmoid colon. There is diffuse gaseous distention of the colon without evidence of focal bowel wall thickening or pericolonic fat stranding. No evidence of acute obstruction or inflammation along the gastrointestinal tract. Mild diverticulosis of the distal sigmoid colon without diverticulitis. The appendix is unremarkable. No ascites or pneumoperitoneum. ABDOMINAL WALL: No acute findings. LYMPH NODES: No pathologic sized lymph nodes within the abdomen or pelvis. VASCULAR: Atherosclerotic calcification of the abdominal aorta and iliac arteries without aneurysm. No retroperitoneal hematoma. PELVIC VISCERA: Prostate gland measures approximately 3.5 x 2.3 x 2.8 cm. No pelvic mass or free fluid. OSSEOUS STRUCTURES: Findings consistent with chronic ankylosing spondylitis. There is extensive ankylosis of the visualized lower thoracic and lumbar spine. Sacroiliac joints and pubic symphysis are ankylosed. Severe osteoarthritis of bilateral femoroacetabular joints. IMPRESSION: 1. No evidence of urolithiasis or urinary tract obstruction. 2. There appears to be circumferential wall thickening of the suboptimally evaluated, decompressed urinary bladder. The Bhat catheter balloon is well-positioned within the bladder. 3. Moderate amount of fecal material is present within the colon and rectum and there is diffuse gaseous distention of the colon. However, no evidence of acute inflammation or obstruction of the bowel. 4. Ankylosing spondylitis.
[2017-05-19 15:18] VITALS: BP 104/74
[2017-05-19] MEDS ORDERED: VALIUM2 M1 PO (20:48)
[2017-05-19 21:58] VITALS: BP 106/74
[2017-05-20 06:13] VITALS: BP 124/98
[2017-05-20 08:12] LABS: ABSOLUTE BASOPHIL COUNT 0 /CUMM (0.0-0.2); ABSOLUTE EOSINOPHIL COUNT 0.5 /CUMM (0.0-0.7); ABSOLUTE GRANULOCYTE CT 10.4 /CUMM (1.4-6.5); ABSOLUTE LYMPH COUNT 1.4 /CUMM (1.2-3.4); ABSOLUTE MONOCYTE COUNT 0.8 /CUMM (0.10-0.60); BASOPHIL % 0.2 % (0.0-2.0); EOSINOPHIL % 3.9 % (0-5); GRANULOCYTE % 79.5 % (42.2-75.2); MEAN CORPUSCULAR HGB 25.3 PG (27.0-31.0); MEAN CORPUSCULAR HGB CONC 32.4 G/DL (33.0-37.0); MEAN CORPUSCULAR VOLUME 77.9 FL (80.0-94.0); MEAN PLATELET VOLUME 8.7 FL (7.4-10.4); PLATELET COUNT 216 /CUMM (130-400); RBC DISTRIBUTION WIDTH 18.7 % (11.5-14.5); RED BLOOD CELL CT 4.59 /CUMM (4.70-6.10)
--- NOTE | 2017-05-20 08:21 | PN- Housestaff ---
Gen MCGILL,[facility] 05/20/17 0821: Subjective Follow-up For: UTI Subjective: No acute events overnight. Complaining of neck and shoulder pain. States neck pain is new but shoulder pain is old. Review of Systems Constitutional: Reports: no symptoms. Cardiovascular: Reports: no symptoms. Respiratory: Reports: no symptoms. Gastrointestinal: Reports: no symptoms. Genitourinary: Reports: no symptoms. Musculoskeletal: Reports: see HPI (shoulder + neck pain). Objective Last 24 Hrs of Vital Signs/I&O Vital Signs Date Time Temp Pulse Resp B/P B/P Pulse O2 O2 Flow FiO2 Mean Ox Delivery Rate 05/20 2127 98.3 95 19 110/70 98 Room Air 05/20 1413 98.2 96 18 104/72 99 Room Air 05/20 0854 90 138/84 05/20 0613 99.3 93 20 124/98 97 Room Air Intake & Output 05/21 0800 05/21 0000 05/20 1600 Intake Total 1360 1000 Output Total 350 650 Balance 1010 350 Intake, IV 400 400 Intake, Oral 960 600 Number 1 2 Bowel Movements Output, Urine 350 650 Physical Exam General Appearance: Alert, Oriented X3, Cooperative, No Acute Distress Skin: profuse sweating HEENT: R neck pain better after massage. R shoulder tender to palpation. Cardiovascular: systolic murmur Lungs: Clear to Auscultation, Normal Air Movement Abdomen: Normal Bowel Sounds, Soft, No Tenderness Extremities: paraplegia Current Medications: Current Medications Sig/Ellen Start time Last Medication Dose Route Stop Time Status Admin Acetaminophen 650 MG Q6-PRN PRN 05/20 1130 AC 05/20 PO 1140 Bisacodyl 10 MG ONCE ONE 05/20 1000 DC 05/20 WI 05/20 1001 0854 Ceftazidime 1,000 MG IQ8 05/20 1600 AC 05/20 IV 2334 Dextrose/Sodium 1,000 ML Q20H 05/20 2315 AC 05/20 Chloride IV 2334 Diphenhydramine HCl 25 MG ONCE ONE 05/20 0200 DC 05/20 PO 05/20 0201 0153 Lidocaine 1 PAT DAILY 05/20 1715 AC 05/20 EXT 1916 Lisinopril 5 MG DAILY 05/20 1000 AC 05/20 PO 0854 Oxycodone HCl 5 MG Q6P PRN 05/20 1330 AC 05/20 PO 1600 Sodium Chloride 1,000 ML Q20H 05/19 1915 DC 05/19 IV 05/20 1514 1951 Last 24 Hrs of Lab/Nelson Results Last 24 Hrs of Labs/Mics: Laboratory Tests 05/20/17 0612: Anion Gap 11, Estimated GFR > 60, BUN/Creatinine Ratio 50.0 H, CBC w Diff NO MAN DIFF REQ, RBC 4.59 L, MCV 77.9 L, MCH 25.3 L, MCHC 32.4 L, RDW 18.7 H, MPV 8.7, Gran % 79.5 H, Lymphocytes % 10.4 L, Monocytes % 6.0, Eosinophils % 3.9, Basophils % 0.2, Absolute Granulocytes 10.4 H, Absolute Lymphocytes 1.4, Absolute Monocytes 0.8 H, Absolute Eosinophils 0.5, Absolute Basophils 0 Assessment/Plan Assessment: Patient is a 56-year-old male with significant history of neurogenic bladder requiring indwelling Gilmore catheter status post spinterotomy procedure, complete heart block status post pacemaker placement presented with increased diaphoresis for the past few months associated with dehydration and concerns for an large prostate. Vital signs in the ER are significant for white count of 100.1, pulse rate 105, blood pressure 118/72 mmHg, saturating well on room air. Physical examination is notable for lack of strength and sensations in the lower extremities, chronic indwelling Gilmore catheter. Heart S1-S2 normal, lungs clear. Labs today show white count of 11.9, H&H of 14/43 with a BUN/creatinine of 25/0.5. Urinalysis cloudy with greater than 75 white count. Blood and urine cultures were sent. Flu is negative. He received a dose of vancomycin, 1 L normal saline, Tylenol in the ER. #UTI Patient did grow multiple organisms in the past including MRSA, Pseudomonas, Escherichia coli, enterococcus - in view of this a single dose of antibiotics given. Urine cx growing gram - rods WBC 11.9 -> 13.0 -continue ceftaz -cont d5 1/2 NS -pt has chronic gilmore. ID recommends urology to place suprapubic cathtether. -keep PT NPO. Hold anticoagulants per urology for suprapubic caththeer placement tomorrow #History of hypertension Continued lisinopril #neck pain Pt has new R neck pain. Reproducible to touch. States it feels better after palpation. R shoudler pain tendernes to palpation Pt requesting to try lidocaine patch vs opiates which affect his GI -cont lidocaine patch -consider CT neck / shoulder for worsening or continuing pain #H/H drop 14.0 -> 11.6 Rectal exam revealed hemorrhoids. Tried guaiac but guaiac card pull mechnism failed -cont to monitor -repeat guaiac if H/H remains to delcine -check for overt signs of bleeding #History of autonomic dysfunction Maybe the reason behind his profuse sweating, fludrocortisone has been discontinued in consideration of his recent improved blood pressure. DVT prophylaxis Subcutaneous Lovenox CODE STATUS Full code His sister is his POA. Problem List: 1. UTI (urinary tract infection) Pain Ratin Pain Location: neck Pain Goal: Pain 4 or less Pain Plan: pain pathway Tomorrow's Labs & Rationales: cbc bep Ranjith Romero 05/20/17 1236: Attending MD Review Statement Attending Statement Attending MD Statement: examined this patient, discuss w/resident/PA/GIRLS SWIMMING COACH, agreed w/resident/PA/GIRLS SWIMMING COACH, discussed with family, reviewed EMR data (avail), discussed with nursing, discussed with case mgmt, reviewed images, amended to note Attending Assessment/Plan: Patient resident of [facility] initially and discharged to home with h/o spinal cord injury quadriplegia, urinary incontinence, atonic bladder, gilmore catheter, htn , hyperlipidemia, orthostatic hypotension on midodrine, h/o complete heart block s/p pacemaker, Decubitus ulcer on admisison comes with sweating, burning in urine and UTI. Patient also found to have leukocytosis with mild tachycardia and temp 100.1. Lactic acid 1.2 on admission. Patient seen/examined bedside. Patient with c/o profuse sweating. Rectal exam on patient request with stools in rectum. Patient continue with iv antibiotics pending urine culture C/S. ID consult. Gilmore cathter replacement. Resume home meds, gi/dvt prophyalxis.
[2017-05-20 08:36] LABS: HEMATOCRIT 35.8 % (42-52)
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
[2017-05-20 14:13] VITALS: BP 104/72
[2017-05-20 21:28] VITALS: BP 110/70
[2017-05-21 06:27] VITALS: BP 104/78
[2017-05-21 08:16] LABS: ABSOLUTE BASOPHIL COUNT 0.1 /CUMM (0.0-0.2); ABSOLUTE EOSINOPHIL COUNT 0.7 /CUMM (0.0-0.7); ABSOLUTE GRANULOCYTE CT 7.2 /CUMM (1.4-6.5); ABSOLUTE LYMPH COUNT 1.8 /CUMM (1.2-3.4); ABSOLUTE MONOCYTE COUNT 0.9 /CUMM (0.10-0.60); BASOPHIL % 0.6 % (0.0-2.0); EOSINOPHIL % 6.8 % (0-5); GRANULOCYTE % 67.5 % (42.2-75.2); MEAN CORPUSCULAR HGB 25.2 PG (27.0-31.0); MEAN CORPUSCULAR HGB CONC 32.3 G/DL (33.0-37.0); MEAN CORPUSCULAR VOLUME 77.8 FL (80.0-94.0); MEAN PLATELET VOLUME 8.6 FL (7.4-10.4); PLATELET COUNT 205 /CUMM (130-400); RBC DISTRIBUTION WIDTH 18.6 % (11.5-14.5); RED BLOOD CELL CT 4.38 /CUMM (4.70-6.10); WHITE BLOOD CELL COUNT 10.6 /CUMM (4.8-10.8)
--- NOTE | 2017-05-21 08:45 | PN- Housestaff ---
Jose Carlos Jay MD,[facility] 05/21/17 0845: Subjective Follow-up For: UTI Subjective: Patient visited today, quadriplegic gentelman with minimal hand motion, was lying in bed comfortably in no acute distress, was alert and oriented. No fever or chills overnight, no shortness of breathing, no chest pain, no other events. Patient was NPO for possible suprapubic cath today, however denied the procedure. planned to continue antibiotics and change gilmore cath. Review of Systems Constitutional: Reports: see HPI. Objective Last 24 Hrs of Vital Signs/I&O Vital Signs Date Time Temp Pulse Resp B/P B/P Pulse O2 O2 Flow FiO2 Mean Ox Delivery Rate 05/21 0940 95 104/78 05/21 0627 97.8 95 18 104/78 98 Room Air 05/20 2128 98.3 95 19 110/70 98 Room Air 05/20 1413 98.2 96 18 104/72 99 Room Air Intake & Output 05/21 1600 05/21 0800 05/21 0000 Intake Total 350 1360 Output Total 950 350 Balance -600 1010 Intake, IV 350 400 Intake, Oral 960 Number 1 Bowel Movements Output, Urine 950 350 Physical Exam General Appearance: Alert, Oriented X3, Cooperative, No Acute Distress Skin Temp/Moisture Exam: Warm/Dry Sepsis Skin Exam (color): Normal for Ethnicity HEENT: Atraumatic, EOMI, Mucous Membr. moist/pink Lungs: Clear to Auscultation Neurological: bilateral LE no M /S Bilateral UE minimal motion. Sensory at level of t10 Extremities: No Edema Current Medications: Current Medications Sig/Ellen Start time Last Medication Dose Route Stop Time Status Admin Acetaminophen 650 MG Q6-PRN PRN 05/20 1130 AC 05/20 PO 1140 Ceftazidime 1,000 MG IQ8 05/20 1600 AC 05/21 IV 0813 Dextrose/Sodium 1,000 ML Q20H 05/20 2315 AC 05/20 Chloride IV 2334 Diphenhydramine HCl 25 MG ONCE ONE 05/21 1145 UNVr PO 05/21 1146 Lidocaine 1 PAT DAILY 05/20 1715 AC 05/20 EXT 1916 Lisinopril 5 MG DAILY 05/20 1000 AC 05/21 PO 0940 Oxycodone HCl 5 MG Q6P PRN 05/20 1330 AC 05/20 PO 1600 Sodium Chloride 1,000 ML Q20H 05/19 1915 DC 05/19 IV 05/20 1514 1951 Last 24 Hrs of Lab/Nelson Results Last 24 Hrs of Labs/Mics: Laboratory Tests 05/21/17 0655: Anion Gap 9, Estimated GFR > 60, BUN/Creatinine Ratio 35.0 H, CBC w Diff NO MAN DIFF REQ, RBC 4.38 L, MCV 77.8 L, MCH 25.2 L, MCHC 32.3 L, RDW 18.6 H, MPV 8.6, Gran % 67.5, Lymphocytes % 16.8 L, Monocytes % 8.3, Eosinophils % 6.8 H, Basophils % 0.6, Absolute Granulocytes 7.2 H, Absolute Lymphocytes 1.8, Absolute Monocytes 0.9 H, Absolute Eosinophils 0.7, Absolute Basophils 0.1 Assessment/Plan Assessment: Patient is a 56-year-old male with significant history of neurogenic bladder requiring indwelling Gilmore catheter status post spinterotomy procedure, complete heart block status post pacemaker placement presented with increased diaphoresis for the past few months associated with dehydration and concerns for an large prostate. Vital signs in the ER are significant for white count of 100.1, pulse rate 105, blood pressure 118/72 mmHg, saturating well on room air. Physical examination is notable for lack of strength and sensations in the lower extremities, chronic indwelling Gilmore catheter. Heart S1-S2 normal, lungs clear. Labs at admission show white count of 11.9, H&H of 14/43 with a BUN/ creatinine of 25/0.5. Urinalysis cloudy with greater than 75 white count. Blood and urine cultures were sent. Flu is negative. He received a dose of vancomycin, 1 L normal saline, Tylenol in the ER. #UTI Patient did grow multiple organisms in the past including MRSA, Pseudomonas, Escherichia coli, enterococcus - in view of this a single dose of antibiotics given. Urine cx growing gram - rods WBC 11.9 -> 10 -continue ceftaz -refused suprapubic cath -pt has chronic gilmore, will change today - follow final urine culture #History of hypertension Continued lisinopril #neck pain Pt has new R neck pain. Reproducible to touch. States it feels better after palpation. R shoudler pain tendernes to palpation Pt requesting to try lidocaine patch vs opiates which affect his GI -cont lidocaine patch -consider CT neck / shoulder for worsening or continuing pain #H/H drop 14.0 -> 11 Rectal exam revealed hemorrhoids. Tried guaiac but guaiac card pull mechnism failed -cont to monitor -repeat guaiac if H/H remains to delcine -check for overt signs of bleeding #History of autonomic dysfunction Maybe the reason behind his profuse sweating, fludrocortisone has been discontinued in consideration of his recent improved blood pressure. DVT prophylaxis Subcutaneous Lovenox CODE STATUS Full code His sister is his POA. Problem List: 1. UTI (urinary tract infection) Pain Ratin Pain Location: NA Pain Goal: Pain 4 or less Pain Plan: NA Tomorrow's Labs & Rationales: CBC JARROD Ranjith Romero 05/21/17 1255: Attending MD Review Statement Attending Statement Attending MD Statement: examined this patient, discuss w/resident/PA/GAUGER CHIEF, agreed w/resident/PA/GAUGER CHIEF, discussed with family, reviewed EMR data (avail), discussed with nursing, discussed with case mgmt, reviewed images, amended to note Attending Assessment/Plan: Patient resident of [facility] initially and discharged to home with h/o spinal cord injury quadriplegia, urinary incontinence, atonic bladder, gilmore catheter, htn , hyperlipidemia, orthostatic hypotension on midodrine, h/o complete heart block s/p pacemaker, Decubitus ulcer on admisison comes with sweating, burning in urine and UTI. Patient also found to have leukocytosis with mild tachycardia and temp 100.1. Lactic acid 1.2 on admission. Patient seen/examined bedside. Patient deneis any new complaints, afebrile. Refused SPC and opted for VNS gilmore replacement. Patient continue with iv antibiotics pending urine culture C/S. ID appreciated. Gilmore cathter replacement. Resumed home meds, gi/dvt prophyalxis.
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
--- NOTE | 2017-05-21 10:51 | PN- Infect Dx ---
Subjective Subjective: Afebrile without complaints. He has had no further chills. Objective Last 24 Hrs of Vital Signs/I&O Vital Signs Date Time Temp Pulse Resp B/P B/P Pulse O2 O2 Flow FiO2 Mean Ox Delivery Rate 05/21 0940 95 104/78 05/21 0627 97.8 95 18 104/78 98 Room Air 05/20 2128 98.3 95 19 110/70 98 Room Air 05/20 1413 98.2 96 18 104/72 99 Room Air Intake & Output 05/21 1600 05/21 0800 05/21 0000 Intake Total 350 1360 Output Total 950 350 Balance -600 1010 Intake, IV 350 400 Intake, Oral 960 Number 1 Bowel Movements Output, Urine 950 350 Physical Exam Other Physical Findings: He appears comfortable in no acute distress Abdomen is soft, nontender Bhat catheter is in place Results Last 24 Hours of Lab Results: Laboratory Tests 05/21 0655 Chemistry Sodium (137 - 145 mmol/L) 138 Potassium (3.5 - 5.1 mmol/L) 4.0 Chloride (98 - 107 mmol/L) 104 Carbon Dioxide (22 - 30 mmol/L) 25 Anion Gap (5 - 16) 9 BUN (9 - 20 mg/dL) 14 Creatinine (0.7 - 1.2 mg/dL) 0.4 L Estimated GFR (>60 ml/min) > 60 BUN/Creatinine Ratio (7 - 25 %) 35.0 H Hematology CBC w Diff NO MAN DIFF REQ WBC (4.8 - 10.8 /CUMM) 10.6 RBC (4.70 - 6.10 /CUMM) 4.38 L Hgb (14.0 - 18.0 G/DL) 11.0 L Hct (42 - 52 %) 34.0 L MCV (80.0 - 94.0 FL) 77.8 L MCH (27.0 - 31.0 PG) 25.2 L MCHC (33.0 - 37.0 G/DL) 32.3 L RDW (11.5 - 14.5 %) 18.6 H Plt Count (130 - 400 /CUMM) 205 MPV (7.4 - 10.4 FL) 8.6 Gran % (42.2 - 75.2 %) 67.5 Lymphocytes % (20.5 - 51.1 %) 16.8 L Monocytes % (1.7 - 9.3 %) 8.3 Eosinophils % (0 - 5 %) 6.8 H Basophils % (0.0 - 2.0 %) 0.6 Absolute Granulocytes (1.4 - 6.5 /CUMM) 7.2 H Absolute Lymphocytes (1.2 - 3.4 /CUMM) 1.8 Absolute Monocytes (0.10 - 0.60 /CUMM) 0.9 H Absolute Eosinophils (0.0 - 0.7 /CUMM) 0.7 Absolute Basophils (0.0 - 0.2 /CUMM) 0.1 Last 24 Hours of Nelson Results: Urine culture May 19 greater than 100,000 colonies of Klebsiella resistant to Ampicillin and Proteus with sensitivities pending Blood cultures 2 May 19 negative Assessment/Plan Impression: Stable with temperatures and white blood cell count now normal on Ceftazidime Day 2 of treatment for presumed sepsis of urologic origin, with his urine culture positive for Klebsiella and Proteus. Suprapubic cystostomy was recommended and Urology evaluation is appreciated but the patient continues to decline this. Suggestion: 1. Follow-up final urine culture 2. Discontinue Ceftazidime 3. Begin Augmentin 875 mg po every 12 hours to complete a 14 day course of treatment
[2017-05-21 14:03] VITALS: BP 110/72
[2017-05-21] MEDS ORDERED: AMOX-CLAV 875-1 EACH PO (16:20)
--- NOTE | 2017-05-21 16:23 | Patient Discharge Instructions ---
Discharge Instructions General Discharge Information You were seen/treated for: UTI Watch for these problems: Severe abdominal pain, dizziness, chills, fever, shortness of breathing, chest pain, change in urine color or worsening of any other symptoms. Special Instructions: Please follow-up with your PCP within one week of discharge. Please follow with your urologist, Dr. Hughes within 1-2 weeks of discharge. Please continue to change gilmore cath as instructed. Diet Continue normal diet: Yes Activity Full Activity/No Limits: No (bedbound) Acute Coronary Syndrome Inclusion Criteria At DC or during hospital stay patient has or had the following: ACS DIAGNOSIS No Discharge Core Measures Meds if any: Prescribed or Continued at Discharge Meds if any: NOT Prescribed or Continued at Discharge Congestive Heart Failure Inclusion Criteria At DC or during hospital stay patient has or had the following: CHF DIAGNOSIS No Discharge Core Measures Meds if any: Prescribed or Continued at Discharge Meds if any: NOT Prescribed or Continued at Discharge Cerebrovascular accident Inclusion Criteria At DC or during hospital stay patient has or had the following: CVA/TIA Diagnosis No Discharge Core Measures Meds if any: Prescribed or Continued at Discharge Meds if any: NOT Prescribed or Continued at Discharge Venous thromboembolism Inclusion Criteria VTE Diagnosis No VTE Type NONE VTE Confirmed by (Test) NONE Discharge Core Measures - Per Current guidelines, there needs to be overlap - treatment for the first 5 days of Warfarin therapy. - If discharged on Warfarin prior to 5 days of - overlap therapy, the patient will need to be - assessed for post discharge needs including - *Post discharge parental anticoagulation - *Warfarin and/or parental anticoagulation education - *Follow up date to check INR post discharge At least 5 days overlap therapy as Inpatient No Meds if any: Prescribed or Continued at Discharge Note: Overlap Therapy is Warfarin and Anticoagulant Meds if any: NOT Prescribed or Continued at Discharge
[2017-05-21 22:21] VITALS: BP 104/70
[2017-05-22 06:45] VITALS: BP 108/68
[2017-05-22] MEDS ORDERED: AMOX-CLAV 875-1 EACH PO ×2 (07:45→09:56)
[2017-05-22 07:50] LABS: ABSOLUTE BASOPHIL COUNT 0.1 /CUMM (0.0-0.2); ABSOLUTE EOSINOPHIL COUNT 0.8 /CUMM (0.0-0.7); ABSOLUTE GRANULOCYTE CT 5.7 /CUMM (1.4-6.5); ABSOLUTE LYMPH COUNT 2.4 /CUMM (1.2-3.4); ABSOLUTE MONOCYTE COUNT 0.7 /CUMM (0.10-0.60); BASOPHIL % 0.7 % (0.0-2.0); EOSINOPHIL % 8.6 % (0-5); GRANULOCYTE % 58.5 % (42.2-75.2); HEMATOCRIT 36.2 % (42-52); MEAN CORPUSCULAR HGB 24.8 PG (27.0-31.0); MEAN CORPUSCULAR VOLUME 77.4 FL (80.0-94.0); MEAN PLATELET VOLUME 8.4 FL (7.4-10.4); PLATELET COUNT 230 /CUMM (130-400); RBC DISTRIBUTION WIDTH 18.8 % (11.5-14.5); RED BLOOD CELL CT 4.67 /CUMM (4.70-6.10); WHITE BLOOD CELL COUNT 9.8 /CUMM (4.8-10.8)
--- NOTE | 2017-05-22 08:21 | PN- Housestaff ---
See Addendum Jose Carlos Jay MD,Ami 05/22/17 0821: Subjective Follow-up For: UTI Subjective: Patient visited today, quadriplegic gentelman with minimal hand motion, was lying in bed comfortably in no acute distress, was alert and oriented. No fever or chills overnight, no shortness of breathing, no chest pain, no other events. Changed to oral Keflex considering snsitivity results, gilmore changed, planned to complete course of antibiotics for 14 days and discharge today. Review of Systems Constitutional: Reports: see HPI. Objective Last 24 Hrs of Vital Signs/I&O Vital Signs Date Time Temp Pulse Resp B/P B/P Pulse O2 O2 Flow FiO2 Mean Ox Delivery Rate 05/22 1035 104 140/100 05/22 0645 98.1 82 20 108/68 94 05/21 2221 99.5 101 20 104/70 99 05/21 1403 98.1 90 20 110/72 98 Room Air Intake & Output 05/22 1600 05/22 0800 05/22 0000 Intake Total 1120 1780 Output Total 1100 1000 Balance 20 780 Intake, IV 400 400 Intake, Oral 720 1380 Number 1 0 Bowel Movements Output, Urine 1100 1000 Physical Exam General Appearance: Alert, Oriented X3, Cooperative, No Acute Distress Skin Temp/Moisture Exam: Warm/Dry Sepsis Skin Exam (color): Normal for Ethnicity HEENT: Atraumatic, EOMI, Mucous Membr. moist/pink Cardiovascular: Regular Rate, Normal S1, Normal S2 Lungs: Clear to Auscultation Abdomen: Soft, No Tenderness Neurological: Normal Speech, grossly no change compared to yesterday Current Medications: Current Medications Sig/Ellen Start time Last Medication Dose Route Stop Time Status Admin Acetaminophen 650 MG .STK-MED ONE 05/21 1517 DC PO 05/21 1518 Acetaminophen 650 MG Q6-PRN PRN 05/20 1130 AC 05/21 PO 1520 Amoxicillin/ 875 MG Q12 05/21 2200 AC 05/22 Clavulanate Potassium PO 1029 Ceftazidime 1,000 MG IQ8 05/20 1600 DC 05/21 IV 0813 Dextrose/Sodium 1,000 ML Q20H 05/20 2315 DC 05/21 Chloride IV 1958 Lidocaine 1 PAT DAILY 05/20 1715 AC 05/22 EXT 1029 Lisinopril 5 MG DAILY 05/20 1000 AC 05/22 PO 1035 Oxycodone HCl 5 MG Q6P PRN 05/20 1330 AC 05/20 PO 1600 Last 24 Hrs of Lab/Nelson Results Last 24 Hrs of Labs/Mics: Laboratory Tests 05/22/17 0618: Anion Gap 13, Estimated GFR > 60, BUN/Creatinine Ratio 32.5 H, CBC w Diff NO MAN DIFF REQ, RBC 4.67 L, MCV 77.4 L, MCH 24.8 L, MCHC 32.0 L, RDW 18.8 H, MPV 8.4, Gran % 58.5, Lymphocytes % 24.9, Monocytes % 7.3, Eosinophils % 8.6 H, Basophils % 0.7, Absolute Granulocytes 5.7, Absolute Lymphocytes 2.4, Absolute Monocytes 0.7 H, Absolute Eosinophils 0.8, Absolute Basophils 0.1 Assessment/Plan Assessment: Patient is a 56-year-old male with significant history of neurogenic bladder requiring indwelling Gilmore catheter status post spinterotomy procedure, complete heart block status post pacemaker placement presented with increased diaphoresis for the past few months associated with dehydration and concerns for an large prostate. Vital signs in the ER were significant for white count of 100.1, pulse rate 105, blood pressure 118/72 mmHg, saturating well on room air. Physical examination was notable for lack of strength and sensations in the lower extremities, chronic indwelling Gilmore catheter. Heart S1-S2 normal, lungs clear. Labs at admission showed white count of 11.9, H&H of 14/43 with a BUN/creatinine of 25/0.5. Urinalysis cloudy with greater than 75 white count. Blood and urine cultures were sent. Flu was negative. He received a dose of vancomycin, 1 L normal saline, Tylenol in the ER. Patient was then admitted to [facility] floor for management of following conditions: UTI Most likely in setting of chronic Gilmore cath. Patient refused to get suprapubic cath. The gilmore cath was changed. urine culture grow GNR. Initially treated with Ceftaz and then changed to oral augmentin. WBC count was normalized at 9.8. Patient was stable to be discharged. We planned to continue oral keflex after sensitivity result came back for total of 14 days. Planned to follow in outpatient with Dr Hughes and continue to change to gilmore as planned. History of hypertension Blood pressure was well controlled. We continued lisinopril Hemoglubin drop intiall 14.0 was stable at 11.6 Rectal exam revealed hemorrhoids. Tried guaiac but guaiac card pull mechnism failed. instructed to follow in outpatient, cuold be related to hemoconcentration. History of autonomic dysfunction Maybe the reason behind his profuse sweating, fludrocortisone has been discontinued in consideration of his recent improved blood pressure. DVT prophylaxis Subcutaneous Lovenox CODE STATUS Full code His sister is his POA. Problem List: 1. UTI (urinary tract infection) Pain Ratin Pain Location: None Pain Goal: Pain 4 or less Pain Plan: Continue current plan Tomorrow's Labs & Rationales: Ranjith Rowland 05/22/17 1234: Attending MD Review Statement Attending Statement Attending MD Statement: examined this patient, discuss w/resident/PA/ICT CUSTOMER SUPPORT OFFICER, agreed w/resident/PA/ICT CUSTOMER SUPPORT OFFICER, discussed with family, reviewed EMR data (avail), discussed with nursing, discussed with case mgmt, reviewed images, amended to note Attending Assessment/Plan: Patient resident of [facility] initially and discharged to home with h/o spinal cord injury quadriplegia, urinary incontinence, atonic bladder, gilmore catheter, htn , hyperlipidemia, orthostatic hypotension on midodrine, h/o complete heart block s/p pacemaker, Decubitus ulcer on admisison comes with sweating, burning in urine and Catheter associated UTI. Patient also found to have leukocytosis with mild tachycardia and temp 100.1. Lactic acid 1.2 on admission. Patient seen/examined bedside. Patient deneis any new complaints, afebrile. Refused SPC and opted for VNS gilmore replacement. Patient PO antibitoics as per ID. Gilmore cathter replaced during this admission. Resumed home meds, gi/dvt prophyalxis.
--- NOTE | 2017-05-22 12:18 | PN- Infect Dx ---
Subjective Subjective: Afebrile without complaints Objective Last 24 Hrs of Vital Signs/I&O Vital Signs Date Time Temp Pulse Resp B/P B/P Pulse O2 O2 Flow FiO2 Mean Ox Delivery Rate 05/22 1035 104 140/100 05/22 0645 98.1 82 20 108/68 94 05/21 2221 99.5 101 20 104/70 99 05/21 1403 98.1 90 20 110/72 98 Room Air Intake & Output 05/22 1600 05/22 0800 05/22 0000 Intake Total 1120 1780 Output Total 150 1100 1000 Balance -150 20 780 Intake, IV 400 400 Intake, Oral 720 1380 Number 1 0 Bowel Movements Output, Urine 150 1100 1000 Physical Exam Other Physical Findings: He appears comfortable in no acute distress Exam unchanged Results Last 24 Hours of Lab Results: Laboratory Tests 05/22 617 Chemistry Sodium (137 - 145 mmol/L) 144 Potassium (3.5 - 5.1 mmol/L) 4.0 Chloride (98 - 107 mmol/L) 105 Carbon Dioxide (22 - 30 mmol/L) 26 Anion Gap (5 - 16) 13 BUN (9 - 20 mg/dL) 13 Creatinine (0.7 - 1.2 mg/dL) 0.4 L Estimated GFR (>60 ml/min) > 60 BUN/Creatinine Ratio (7 - 25 %) 32.5 H Hematology CBC w Diff NO MAN DIFF REQ WBC (4.8 - 10.8 /CUMM) 9.8 RBC (4.70 - 6.10 /CUMM) 4.67 L Hgb (14.0 - 18.0 G/DL) 11.6 L Hct (42 - 52 %) 36.2 L MCV (80.0 - 94.0 FL) 77.4 L MCH (27.0 - 31.0 PG) 24.8 L MCHC (33.0 - 37.0 G/DL) 32.0 L RDW (11.5 - 14.5 %) 18.8 H Plt Count (130 - 400 /CUMM) 230 MPV (7.4 - 10.4 FL) 8.4 Gran % (42.2 - 75.2 %) 58.5 Lymphocytes % (20.5 - 51.1 %) 24.9 Monocytes % (1.7 - 9.3 %) 7.3 Eosinophils % (0 - 5 %) 8.6 H Basophils % (0.0 - 2.0 %) 0.7 Absolute Granulocytes (1.4 - 6.5 /CUMM) 5.7 Absolute Lymphocytes (1.2 - 3.4 /CUMM) 2.4 Absolute Monocytes (0.10 - 0.60 /CUMM) 0.7 H Absolute Eosinophils (0.0 - 0.7 /CUMM) 0.8 Absolute Basophils (0.0 - 0.2 /CUMM) 0.1 Last 24 Hours of Nelson Results: Blood cultures 2 May 19 negative Urine culture May 19 greater than 100,000 colonies of Klebsiella resistant to Ampicillin and Escherichia coli resistant to Ampicillin, Bactrim and Ciprofloxacin and intermediate to Augmentin Assessment/Plan ID Impression: Stable with temperatures and white blood cell count normal now on Augmentin Day 3 of treatment for presumed sepsis of urologic origin, with his urine culture now reported positive for Klebsiella and Escherichia coli, which is intermediate to Augmentin. His antibiotics will need to be adjusted based on these final sensitivities. A suprapubic cystostomy was recommended and refused by patient. Suggestion: 1. Discontinue Augmentin 2. Begin Keflex 500 mg po every 8 hours to complete a 2 week course of treatment (until June 02)
[2017-05-22] MEDS ORDERED: KEFLEX500 M1 PO (12:41)
[2017-05-22 13:58] VITALS: BP 104/60
--- NOTE | 2017-05-22 14:40 | Discharge Summary ---
Visit Information Visit Dates Admission Date: 05/19/17 Discharge Date: 05/22/17 Hospital Course Course Attending Physician: Ranjith Romero MD Primary Care Physician: Delfino MCGILL,Marcos Mccrary [facility] Course: Patient is a 56-year-old male with significant history of neurogenic bladder requiring indwelling Gilmore catheter status post spinterotomy procedure, complete heart block status post pacemaker placement presented with increased diaphoresis for the past few months associated with dehydration and concerns for an large prostate. Vital signs in the ER were significant for white count of 100.1, pulse rate 105, blood pressure 118/72 mmHg, saturating well on room air. Physical examination was notable for lack of strength and sensations in the lower extremities, chronic indwelling Gilmore catheter. Heart S1-S2 normal, lungs clear. Labs at admission showed white count of 11.9, H&H of 14/43 with a BUN/creatinine of 25/0.5. Urinalysis cloudy with greater than 75 white count. Blood and urine cultures were sent. Flu was negative. He received a dose of vancomycin, 1 L normal saline, Tylenol in the ER. Patient was then admitted to [facility] floor for management of following conditions: UTI Most likely in setting of chronic Gilmore cath. Patient refused to get suprapubic cath. The gilmore cath was changed. urine culture grow GNR. Initially treated with Ceftaz and then changed to oral augmentin. WBC count was normalized at 9.8. Patient was stable to be discharged. We planned to continue oral keflex after sensitivity result came back for total of 14 days. Planned to follow in outpatient with Dr Hughes and continue to change to gilmore as planned. History of hypertension Blood pressure was well controlled. We continued lisinopril Hemoglubin drop intiall 14.0 was stable at 11.6 Rectal exam revealed hemorrhoids. Tried guaiac but guaiac card pull mechnism failed. instructed to follow in outpatient, cuold be related to hemoconcentration. History of autonomic dysfunction Maybe the reason behind his profuse sweating, fludrocortisone has been discontinued in consideration of his recent improved blood pressure. Patient was discharged on oral Keflex for a total of 14 days with recommendations below. Allergies: Coded Allergies: sulfamethoxazole (From ) (UNKNOWN 08/09/16) trimethoprim (From ) (UNKNOWN 08/09/16) Disposition Summary Disposition Principal Diagnosis: UTI Additional Diagnosis: Chronic medical conditions, quadriplegia, chronic hypertension Discharge Disposition: home health services Discharge Instructions General Discharge Information Code Status: Full Code Patient's Diet: Regular Patient's Activity: Patient is bedbound Follow-Up Instructions/Appts: Please follow-up with your PCP within one week of discharge. Please follow with your urologist, Dr. Hughes within 1-2 weeks of discharge. Please continue to change gilmore cath as instructed. Medications at Discharge Discharge Medications: Stop taking the following medications: Fludrocortisone Acetate (Fludrocortisone Acetate) 0.1 MG TABLET ORAL DAILY Qty = 30 Continue taking these medications: Lisinopril (Lisinopril) 5 MG TABLET 5 Milligram ORAL DAILY Qty = 30 Comments: last given 05/22/17 @ 1000 Diazepam (Valium) 2 MG TABLET 1 Tablet ORAL DAILY as needed for spasms Qty = 1 Start taking the following new medications: Cephalexin (Keflex) 500 MG CAPSULE 1 Capsule ORAL THREE TIMES DAILY Qty = 34 No Refills Comments: last given 05/22/17 @ 1000 Copies To: Iván Hughes MD; Delfino MCGILL,Marcos Shields MD Review Statement Documenting Attending: Nick MCGILL,Ranjith Other Findings: Patient resident of [facility] initially and discharged to home with h/o spinal cord injury quadriplegia, urinary incontinence, atonic bladder, gilmore catheter, htn , hyperlipidemia, orthostatic hypotension on midodrine, h/o complete heart block s/p pacemaker, Decubitus ulcer on admisison comes with sweating, burning in urine and UTI. Patient also found to have leukocytosis with mild tachycardia and temp 100.1. Lactic acid 1.2 on admission. Patient seen/examined bedside. Patient deneis any new complaints, afebrile. Refused SPC and opted for VNS gilmore replacement. Patient continue PO Abx as per urine culture C/S. ID appreciated. Gilmore cathter replacement. Resumed home meds at discharge. Follow up o/p PCP in 3-5 days of discharge.
== END 2017-05-22 18:00 | disposition home health service (06) | DRG 698 ==
LOC: ERH 09:21 → 2NB 12:55 → ERHI 12:55 → ENRESERV 13:40 → ENTRNSPT 14:10 → EDTRNSPTSTS 14:14 → EDTRNSPT 14:14 → 2NB 14:29 → CMPTRNSPT 14:40 → ENPENDDIS 05-22 10:00 → 2NB 05-22 18:00
PROVIDERS: Internal Medicine; Physician Assistant; Radiology Vascular & Interventional Radiology
DX: T83.511A Infection and inflammatory reaction due to indwelling urethral catheter, initial encounter (principal); G82.54 Quadriplegia, C5-C7 incomplete; S14.155S Other incomplete lesion at C5 level of cervical spinal cord, sequela; N31.2 Flaccid neuropathic bladder, not elsewhere classified; G90.9 Disorder of the autonomic nervous system, unspecified; L89.891 Pressure ulcer of other site, stage 1; N39.0 Urinary tract infection, site not specified; R33.9 Retention of urine, unspecified; E86.0 Dehydration; W16.42XS Fall into unspecified water causing other injury, sequela; E78.5 Hyperlipidemia, unspecified; M45.4 Ankylosing spondylitis of thoracic region; M45.6 Ankylosing spondylitis lumbar region; B96.20 Unspecified Escherichia coli [E. coli] as the cause of diseases classified elsewhere; B96.1 Klebsiella pneumoniae [K. pneumoniae] as the cause of diseases classified elsewhere; Y84.6 Urinary catheterization as the cause of abnormal reaction of the patient, or of later complication, without mention of misadventure at the time of the procedure; Z95.0 Presence of cardiac pacemaker
CPT/HCPCS: 2NBP; 36592; 71045; 74176; 81001; 82436; 87040; 87086; 87804; 87804-59; 93005; 93010; J0131; J0713; J3370; J7042; J7060

== ENCOUNTER 2017-06-17 10:50 | Observation (INO) | payer OTHER, MEDICARE ==
[~2017-06-17] VITALS: Ht 170.2 cm; Wt 76.7 kg
[~2017-06-17 10:50] MED LIST changes: +AMOX-CLAV 875-1 EACH PO; +KEFLEX500 M1 PO
[2017-06-17 11:23] LABS: ABSOLUTE BASOPHIL COUNT 0 /CUMM (0.0-0.2); ABSOLUTE EOSINOPHIL COUNT 0.6 /CUMM (0.0-0.7); ABSOLUTE GRANULOCYTE CT 6.8 /CUMM (1.4-6.5); ABSOLUTE LYMPH COUNT 1.7 /CUMM (1.2-3.4); ABSOLUTE MONOCYTE COUNT 0.4 /CUMM (0.10-0.60); BASOPHIL % 0.2 % (0.0-2.0); EOSINOPHIL % 6.4 % (0-5); GRANULOCYTE % 70.9 % (42.2-75.2); HEMATOCRIT 39.9 % (42-52); MEAN CORPUSCULAR HGB 25.2 PG (27.0-31.0); MEAN CORPUSCULAR HGB CONC 32.7 G/DL (33.0-37.0); MEAN CORPUSCULAR VOLUME 76.9 FL (80.0-94.0); MEAN PLATELET VOLUME 8.1 FL (7.4-10.4); PLATELET COUNT 213 /CUMM (130-400); RBC DISTRIBUTION WIDTH 20.6 % (11.5-14.5); RED BLOOD CELL CT 5.19 /CUMM (4.70-6.10); WHITE BLOOD CELL COUNT 9.5 /CUMM (4.8-10.8)
--- NOTE | 2017-06-17 12:16 | RADIOLOGY REPORT ---
EXAMINATION: XR PORTABLE CHEST CLINICAL INFORMATION: Altered mental status COMPARISON: 05/19/2017 TECHNIQUE: Portable frontal view of the chest was obtained. FINDINGS: Right chest wall pacer with lead overlying the right ventricle. Cardiac leads overlie the chest. Cerclage wires overlie the cervical spine with fracture of the second wire. The lungs are well expanded. There is no focal consolidation, edema, or effusion. No pneumothorax. The cardiomediastinal silhouette is within normal limits. No acute osseous abnormality. IMPRESSION: No acute pulmonary findings.
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
--- NOTE | 2017-06-17 13:31 | CT SCAN REPORT ---
EXAMINATION: CT ABDOMEN AND PELVIS WITH CONTRAST CLINICAL INFORMATION: 57-year-old male with abdominal pain and sweating. COMPARISON: 05/19/2017. Also, comparison is made with a a few of the saved images from the abdomen CT of 07/23/2005. TECHNIQUE: Multidetector volumetric imaging was performed of the abdomen and pelvis following IV administration of 94 mL of Optiray 320 intravenous contrast. Sagittal and coronal reformatted images were obtained on the technologist's workstation. DLP: 652 mGy-cm FINDINGS: LUNG BASES: Trace right pleural effusion is new compared to 05/19/2017. A cardiac pacing lead extends to the apex of the right ventricle. No pericardial effusion. LIVER, GALLBLADDER, AND BILIARY TREE: Liver has normal size, contour and attenuation. Gallbladder is unremarkable. No intrahepatic or extrahepatic bile duct dilatation. PANCREAS: Unremarkable. SPLEEN: Spleen remains unchanged in size compared to 05/19/2017; it measures 13 cm in craniocaudal dimension. A heterogeneously enhancing, approximately 7 cm mass of the superior spleen is unchanged in size compared to 07/23/2005. ADRENAL GLANDS: Unremarkable. KIDNEYS AND URETERS: No nephrolithiasis, hydronephrosis or perinephric edema. 1 cm cortical cyst at the upper pole of the right kidney. This cyst measured up to 1.6 cm on the renal ultrasound from 01/06/2011. There are small cysts of the lower pole of the left kidney. BLADDER: Again noted is diffuse wall thickening of the urinary bladder, which is decompressed by a Bhat catheter. No bladder calculi.. GASTROINTESTINAL TRACT: Stomach is unremarkable. Small and large bowel are normal in caliber. There is diffuse gaseous distention of the colon, similar compared to 05/19/2017. Amount of fecal material is present within the colon. There is mild, circumferential wall thickening of the rectum without evidence of rectal mucosal hyperenhancement, focal lesion, perirectal fat stranding or perirectal abscess. The appendix is normal. No ascites or pneumoperitoneum. ABDOMINAL WALL: Unremarkable. LYMPH NODES: No pathologic sized lymph nodes within the abdomen or pelvis. VASCULAR: Again noted is extensive atherosclerosis of the abdominal aorta and iliac arteries without aneurysm. PELVIC VISCERA: Prostate gland is normal in size. No pelvic free fluid. OSSEOUS STRUCTURES: Again noted is the extensive ankylosis of the visualized lower thoracic and lumbar spine. Also, there is ankylosis of the sacroiliac joints and pubic symphysis. Severe osteoarthritis of the hips. Old healed ulcer overlying the left ischial tuberosity. Also, there appears to be an old, healed ulcer with tissue thickening overlying the posterior left iliac bone. IMPRESSION: 1. Mild circumferential thickening of the rectal wall without rectal mucosal hyperenhancement, perirectal fat stranding or perirectal abscess. Consider possibility of mild proctitis. Again noted is diffuse gaseous distention of the colon, similar compared to 05/19/2017. No bowel obstruction. 2. Persistent circumferential thickening of the urinary bladder wall. This could represent detrusor muscle hypertrophy (if there is chronic bladder outlet obstruction) or cystitis. 3. Trace right pleural effusion is new compared to 05/19/2017. 4. Large, 7 cm heterogeneously enhancing splenic mass is unchanged in size compared to 07/23/2005, indicative of a benign lesion (e.g., splenic hemangioma or hamartoma). 5. Chronic ankylosing spondylitis.
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
[2017-06-17] MEDS ORDERED: COLACE100 M1 PO (18:05)
[2017-06-17] MEDS ORDERED: PROBIOTIC1 EACH PO (18:05)
[2017-06-17 19:14] VITALS: BP 180/100
[2017-06-17 22:59] VITALS: BP 130/86
[2017-06-18 06:52] VITALS: BP 110/70
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
[2017-06-18 10:00] VITALS: BP 158/100
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
--- NOTE | 2017-06-18 14:03 | ULTRASOUND REPORT ---
EXAMINATION: US TRIPLEX OF LOWER EXTREMITIES, BILATERAL CLINICAL INFORMATION: Swelling of bilateral lower extremities. COMPARISON: None TECHNIQUE: Color-flow triplex imaging with spectral analysis and compression Doppler were performed on the lower extremities. FINDINGS: Respiratory variation, normal compression and augmented flow are noted throughout the lower extremities. The visualized common femoral vein, superficial femoral vein, profunda femoral vein, popliteal vein and midcalf peroneal and posterior tibial venous segments show no evidence of deep venous thrombosis. There is no Alvarado's cyst. IMPRESSION: Normal triplex scan without evidence of deep venous thrombosis involving the lower extremities.
[2017-06-18 15:21] VITALS: BP 112/68
== END 2017-06-18 20:28 | disposition home health service (06) ==
LOC: ERH 10:50 → 1NO 15:30 → ERHI 15:30 → ENRESERV 17:09 → EDTRNSPT 18:11 → ENTRNSPT 18:11 → EDTRNSPT 18:12 → 1NO 18:13 → EDTRNSPTSTS 18:31 → EDTRNSPT 18:31 → 1NO 18:49 → CMPTRNSPT 19:40 → 1NO 06-18 07:57 → ENPENDDIS 06-18 14:12 → 1NO 06-18 20:28
PROVIDERS: Emergency Medicine
DX: R61 Generalized hyperhidrosis (principal); T82.118A Breakdown (mechanical) of other cardiac electronic device, initial encounter; G82.50 Quadriplegia, unspecified; N31.9 Neuromuscular dysfunction of bladder, unspecified; F41.9 Anxiety disorder, unspecified; F32.9 Major depressive disorder, single episode, unspecified; N35.9 Urethral stricture, unspecified; Z87.440 Personal history of urinary (tract) infections; I10 Essential (primary) hypertension; N31.2 Flaccid neuropathic bladder, not elsewhere classified; E87.2 Acidosis; L89.303 Pressure ulcer of unspecified buttock, stage 3; M79.89 Other specified soft tissue disorders
CPT/HCPCS: 6020; 71045; 74177; 81001; 87040; 87086; 93005; 93010; 93970; G0378; J0690; J1644; Q9965